=== PATIENT | female | born 1930 | race Caucasian/White ===

== ENCOUNTER 2016-09-24 13:22 | Inpatient (IN) | payer OTHER ==
[~2016-09-24] VITALS: Ht 160 cm; Wt 52.0 kg
[~2016-09-24 13:22] MED LIST: ASPI81TA28 PO; ATRIN INH; CLC100 PO; GFNSR600 PO; LORA-741 PO; LPR25 PO; MULTTAB58 PO; NCDT21 TD; OXGN; PRD20 PO; XPNIN INH
[2016-09-24] MEDS ORDERED: METOPROLOL TARTRATE 1 MG/ML VIAL IV STA ×2 (13:59→15:14)
--- NOTE | 2016-09-24 14:07 | EMERGENCY ROOM VISIT NOTE ---
History Report prepared by Angélica: Anderson John Under the Supervision of: Dr. Ervin Campa M.D. First contact with patient: 13:50 Chief Complaint: RESPIRATORY PROBLEMS Stated Complaint: SWELLING FEET,LEGS,VERY LOW OXYGEN, NO ENERGY History of Present Illness The patient is an 86 year old female who presents to the Emergency Room with complaints of worsening shortness of breath that started a few days ago. Her legs are swollen, but this is chronic. The shortness of breath does not change with position. She says she did not notice that her heart rate was a bit fast. Per the patient's family, the patient uses 5 liters of oxygen at home. The patient did have a cold last week and was on Prednisone. She has no history of atrial fibrillation. The patient is not on any blood thinners. She takes Metoprolol and baby aspirin. She was here a year ago for similar symptoms. Source of History: patient, family Onset: A few days ago Position: other (global - shortness of breath) Timing: worsening Note: Associated symptoms: Cold symptoms last week. Legs swollen, but chronic. Heart rate a bit fast. Review of Systems See HPI for pertinent positives & negatives. A total of 10 systems reviewed and were otherwise negative. Past Medical & Surgical Medical Problems: (1) Atrial fibrillation with RVR (2) CAD (coronary artery disease) (3) Carotid bruit (4) COPD, severe (5) HTN (hypertension) (6) Nonischemic cardiomyopathy (7) Right ventricular dysfunction (8) Tobacco abuse Surgical Problems: (1) H/O cardiac catheterization Family History Family history omitted secondary to age. Social History Smoking Status: Current Every Day Smoker Alcohol Use: none Drug Use: none Marital Status: Housing Status: lives with family Occupation Status: retired Current/Historical Medications Scheduled Aspirin (Aspirin Ec), 81 MG PO DAILY Metoprolol Tartrate (Lopressor), 12.5 MG PO BID Multiple Vitamin (Multivitamin), 1 TAB PO DAILY Oxygen (Oxygen), 5 LITERS NA CONTINOUS Prednisone Tab (Prednisone), 10 MG PO UD Scheduled PRN Ipratropium [place] (Atrovent Hfa), 2 PUFFS INH QID PRN for SOB or cough Levalbuterol Tartrate (Levalbuterol Tartrate Hfa), 2 PUFFS INH Q4H PRN for SOB/ Wheezing Allergies Coded Allergies: Sulfa Antibiotics (Verified Allergy, Intermediate, ?, 09/24/16) Penicillins (Unverified Allergy, Mild, 09/24/16) Physical Exam Vital Signs Date Time Temp Pulse Resp B/P Pulse Ox O2 Delivery O2 Flow Rate FiO2 09/24/16 18:04 137 24 100 Nasal Cannula 4.0 09/24/16 17:58 102/70 09/24/16 17:55 112/82 09/24/16 17:53 115 20 90 09/24/16 17:43 142/80 09/24/16 17:38 99 21 98 09/24/16 17:29 111/53 09/24/16 17:23 119 19 99 09/24/16 17:18 111 17 98 09/24/16 17:14 122/56 09/24/16 17:03 115 17 98 09/24/16 16:58 151/58 09/24/16 16:48 112 16 98 09/24/16 16:44 124/73 09/24/16 16:33 124 22 97 09/24/16 16:29 115/74 09/24/16 16:25 145 127/93 09/24/16 16:24 127/93 09/24/16 16:18 134 19 98 09/24/16 16:13 152/71 09/24/16 16:07 148/91 09/24/16 16:03 126 13 98 09/24/16 15:59 125/78 09/24/16 15:48 124 22 98 09/24/16 15:47 96/82 09/24/16 15:46 112/83 09/24/16 15:44 74/57 09/24/16 15:33 120 26 98 09/24/16 15:32 106/90 09/24/16 15:18 130 15 99 09/24/16 15:13 80/64 09/24/16 15:03 113 15 99 09/24/16 14:58 124/70 09/24/16 14:48 107 21 100 09/24/16 14:43 93/75 09/24/16 14:37 114 19 99 09/24/16 14:31 84/56 09/24/16 14:28 84/56 09/24/16 14:22 112 26 99 09/24/16 14:18 99 Nasal Cannula 4.0 09/24/16 14:16 147 28 114/42 100 Nasal Cannula 4.0 09/24/16 14:15 99 Nasal Cannula 4.0 09/24/16 14:15 114/42 09/24/16 14:13 169 131/73 09/24/16 14:07 148 24 98 09/24/16 13:54 163 09/24/16 13:52 156 19 09/24/16 13:50 131/73 09/24/16 13:29 36.4 95 18 127/72 94 Nasal Cannula 5.0 Physical Exam GENERAL: Patient is chronically unwell appearing and in moderate distress. HEENT: No acute trauma, normocephalic atraumatic, mucous membranes moist, no nasal congestion, no scleral icterus. NECK: No stridor, no adenopathy, no meningismus, trachea is midline. Bilateral JVD elevation. LUNGS: Dyspneic. Decreased breath sounds throughout entire right lobe, decreased on left lower lobe. HEART: Tachycardic rate and irregular rhythm. No murmurs, rubs, gallops appreciated. ABDOMEN: Soft, nontender, bowel sounds positive, no masses appreciated, no peritonitis. BACK: No midline tenderness, no CVA tenderness EXTREMITIES: Normal motion all extremities, no cyanosis. 3+ pitting edema bilateral lower legs. NEUROLOGIC: Alert and oriented, no acute motor or sensory deficits, no focal weakness, cranial nerves grossly intact. SKIN: No rash, no jaundice, no diaphoresis. Medical Decision & Procedures ER Provider Diagnostic Interpretation: X ray results are stated below per my interpretation and the radiologist's interpretation. SINGLE VIEW CHEST CLINICAL HISTORY: Dyspnea. Lower extremity edema. FINDINGS: An AP, portable, upright chest radiograph is compared to study dated 01/12/2015 and correlated with chest CT dated 03/29/2008. The examination is degraded by portable technique and patient rotation. The cardiomediastinal silhouette is unremarkable. There is advanced emphysema and chronic interstitial thickening, with postoperative change from previous right-sided pulmonary resection. These findings are similar to previous. There is pleural fluid the right lung base with right basilar consolidation. There is likely a trace left pleural effusion. The left lung is otherwise clear. The skeletal structures are osteopenic. Degenerative change and scoliosis are noted in the thoracic spine. IMPRESSION: 1. Advanced emphysema and postoperative changes from right-sided pulmonary resection are similar to previous. 2. There is pleural fluid at the right lung base with right basilar opacities. The fluid is likely on a postoperative basis and this may represent atelectasis/scarring. This is also similar to previous. Correlate clinically for evidence of superimposed pneumonia. 3. Suspect a trace left pleural effusion. The left lung is otherwise clear. Electronically signed by: Janes Rae M.D. 09/24/2016 2:57 PM Dictated Date/Time: 09/24/2016 2:54 PM Laboratory Results 09/24/16 14:00 Red Blood Count 3.64, Mean Corpuscular Volume 94.5, Mean Corpuscular Hemoglobin 27.5, Mean Corpuscular Hemoglobin Concent 29.1, Neutrophils (%) (Auto) 58.1, Lymphocytes (%) (Auto) 37.3, Monocytes (%) (Auto) 4.1, Eosinophils (%) (Auto) 0.0, Basophils (%) (Auto) 0.0, Neutrophils # (Auto) 5.48, Lymphocytes # (Auto) 3.52, Monocytes # (Auto) 0.39, Eosinophils # (Auto) 0.00, Basophils # (Auto) 0.00 09/24/16 14:00 Test 09/24/16 14:00 White Blood Count 9.44 K/uL (4.8-10.8) Red Blood Count 3.64 M/uL (4.2-5.4) Hemoglobin 10.0 g/dL (12.0-16.0) Hematocrit 34.4 % (37-47) Mean Corpuscular Volume 94.5 fL (80-100) Mean Corpuscular Hemoglobin 27.5 pg (25-34) Mean Corpuscular Hemoglobin Concent 29.1 g/dl (32-36) Platelet Count 108 K/uL (130-400) Neutrophils (%) (Auto) 58.1 % Lymphocytes (%) (Auto) 37.3 % Monocytes (%) (Auto) 4.1 % Eosinophils (%) (Auto) 0.0 % Basophils (%) (Auto) 0.0 % Neutrophils # (Auto) 5.48 K/uL (1.4-6.5) Lymphocytes # (Auto) 3.52 K/uL (1.2-3.4) Monocytes # (Auto) 0.39 K/uL (0.11-0.59) Eosinophils # (Auto) 0.00 K/uL (0-0.5) Basophils # (Auto) 0.00 K/uL (0-0.2) RDW Standard Deviation 55.9 fL (36.4-46.3) RDW Coefficient of Variation 16.1 % (11.5-14.5) Immature Granulocyte % (Auto) 0.5 % Immature Granulocyte # (Auto) 0.05 K/uL (0.00-0.02) Platelet Estimate DECREASED Poikilocytosis PRESENT Ovalocytes 1+ Prothrombin Time 10.9 SECONDS (9.0-12.0) Prothromb Time International Ratio 1.0 (0.9-1.1) Activated Partial Thromboplast Time 23.9 SECONDS (21.0-31.0) Partial Thromboplastin Ratio 0.9 Anion Gap 3.0 mmol/L (3-11) Est Creatinine Clear Calc Drug Dose 41.1 ml/min Estimated GFR () 93.0 Estimated GFR (Non- 80.2 BUN/Creatinine Ratio 36.4 (10-20) Calcium Level 8.3 mg/dl (8.5-10.1) Magnesium Level 2.1 mg/dl (1.8-2.4) Total Creatine Kinase 44 U/L (26-192) Creatine Kinase MB 4.2 ng/ml (0.5-3.6) Creatine Kinase MB Ratio 9.5 (0-3.0) Troponin I 0.028 ng/ml (0-0.045) Pro-B-Type Natriuretic Peptide 33656 pg/ml (0-1800) Thyroid Stimulating Hormone (TSH) 1.140 uIu/ml (0.300-4.500) Laboratory results as reviewed by me. Medications Administered Medications (Trade) Dose Ordered Sig/Jesús Route Start Time Stop Time Status Last Admin Dose Admin Metoprolol Tartrate (Lopressor Iv) 5 mg NOW STAT IV 09/24/16 13:59 09/24/16 14:01 DC 09/24/16 14:13 5 MG Metoprolol Tartrate (Lopressor Iv) 5 mg NOW STAT IV 09/24/16 15:14 09/24/16 15:15 DC 09/24/16 16:25 5 MG Furosemide (Lasix Inj) 40 mg STK-MED ONCE .ROUTE 09/24/16 17:32 09/24/16 17:34 DC 09/24/16 17:36 20 MG Heparin Sodium (Porcine) (Heparin Sq 5000 Unit/0.5ml) 5,000 unit STK-MED ONCE .ROUTE 09/24/16 17:51 09/24/16 17:53 DC 09/24/16 18:01 3,000 UNIT ECG Indication: SOB/dyspnea Rate (beats per minute): 148 Rhythm: atrial fibrillation (with RVR) Findings: other (nonspecific ST changes) Comparison ECG Date: acute change from previous normal sinus rhythm ED Course 1354: The patient was evaluated in room C12B. A complete history and physical exam was performed. 1359: Ordered Lopressor IV 5 mg IV. 1445: I reevaluated the patient and she says she feels alright. She still feels a bit short of breath. Her heart rate is in the 130s now. The patient verbally expressed understanding and agreement of the treatment plan. The patient will be evaluated for further treatment. 1504: I discussed the patient with Rima Steven - she will evaluate the patient for further treatment. 1515: I reevaluated the patient and her heart rate is in the 130s and her blood pressure is in the 120s, so we are giving her more Lopressor. Medical Decision Differential: Infectious, Reactive Airway Disease, Pneumonia, Pneumothorax, COPD , CHF, ACS, Pulmonary Embolism, MSK, GI, Dissection, amongst other etiologies entertained. 86 yr old female arrives with complaint of shortness of breath. By exam she is acute CHF though is now in new onset Afib with RVR. Given Lopressor which improved HR then given another dose with improvement when started getting fast again. Mild hypotension thus wish to avoid over medication as she is stable and in minimal distress. No clear pulm edema on CXR though clearly is overloaded. Defer Lasix dosing to hospitalist as may want to see how fluid status modifies after keeping rate under control. Unclear if recent steroids have caused Afib resulting in CHF, or if CHF due to not taking meds or other issues. Held off on IV fluids for hypotension as it improved without and with her fluid overload seems reasonable to hold off from given more fluid than necessary. No evidence of ACS, PE, dissection at this time. Consults Time Called: [id number] Consulting Physician: Rima Steven Returned Call: [phone] I discussed the patient with Rima Steven - she will evaluate the patient for further treatment. Impression Primary Impression: Atrial fibrillation with RVR Additional Impressions: CHF (congestive heart failure) Generalized weakness Scribe Attestation The scribe's documentation has been prepared under my direction and personally reviewed by me in its entirety. I confirm that the note above accurately reflects all work, treatment, procedures, and medical decision making performed by me. Departure Information Dispostion Being Evaluated By Hospitalist Prescriptions Ipratropium [place] (Atrovent Hfa) 200 Puffs/3400 Mcg Aers 2 PUFFS INH QID Y for SOB or cough for 30 Days Prov: Earline Winters PA-C 09/24/16 Referrals Eron Crespo M.D. (PCP) Patient Instructions My [facility] Problem Qualifiers Additional Impressions: CHF (congestive heart failure) Congestive heart failure type: systolic Congestive heart failure chronicity: acute Qualified Codes: I50.21 - Acute systolic (congestive) heart failure
[2016-09-24 14:16] LABS: MEAN CORPUSCULAR HGB CONC 29.1 g/dl (32-36)
[2016-09-24 14:21] LABS: PARTIAL THROMBOPLASTIN RATIO 0.9; PROTHROMBIN TIME (PATIENT) 10.9 SECONDS (9.0-12.0)
[2016-09-24 14:24] LABS: HEMATOCRIT 34.4 % (37-47); MEAN CELL VOLUME 94.5 fL (80-100); MEAN CORPUSCULAR HEMOGLOBIN 27.5 pg (25-34); RED BLOOD COUNT 3.64 M/uL (4.2-5.4); WHITE BLOOD COUNT 9.44 K/uL (4.8-10.8)
[2016-09-24 14:33] LABS: BUN/CREATININE RATIO 36.4 (10-20); CALCIUM 8.3 mg/dl (8.5-10.1); CREATININE 0.64 mg/dl (0.60-1.20); MAGNESIUM 2.1 mg/dl (1.8-2.4); POTASSIUM 4.5 mmol/L (3.5-5.1)
[2016-09-24 14:38] LABS: CKMB/CK RATIO 9.5 (0-3.0); COMPLETE YES; IG% 0.5 %; LYMPH % 37.3 %; LYMPH ABS # 3.52 K/uL (1.2-3.4); MONO % 4.1 %; NEUT % 58.1 %; OVALOCYTES 1+; PLATELET COUNT 108 K/uL (130-400); PLT ESTIMATE DECREASED; POIKILOCYTOSIS PRESENT
[2016-09-24] MEDS ORDERED: PRED10TA PO (14:45)
[2016-09-24] MEDS ORDERED: CLOT10TR MT (14:45)
[2016-09-24] MEDS ORDERED: FURO20TA PO (14:45)
[2016-09-24] MEDS ORDERED: LEVA45AE INH (14:45)
--- NOTE | 2016-09-24 14:58 | DIAGNOSTIC IMAGING REPORT ---
SINGLE VIEW CHEST CLINICAL HISTORY: Dyspnea. Lower extremity edema. FINDINGS: An AP, portable, upright chest radiograph is compared to study dated 01/12/2015 and correlated with chest CT dated 03/29/2008. The examination is degraded by portable technique and patient rotation. The cardiomediastinal silhouette is unremarkable. There is advanced emphysema and chronic interstitial thickening, with postoperative change from previous right-sided pulmonary resection. These findings are similar to previous. There is pleural fluid the right lung base with right basilar consolidation. There is likely a trace left pleural effusion. The left lung is otherwise clear. The skeletal structures are osteopenic. Degenerative change and scoliosis are noted in the thoracic spine. IMPRESSION: 1. Advanced emphysema and postoperative changes from right-sided pulmonary resection are similar to previous. 2. There is pleural fluid at the right lung base with right basilar opacities. The fluid is likely on a postoperative basis and this may represent atelectasis/scarring. This is also similar to previous. Correlate clinically for evidence of superimposed pneumonia. 3. Suspect a trace left pleural effusion. The left lung is otherwise clear. Electronically signed by: Janes Rae M.D. 09/24/2016 2:57 PM Dictated Date/Time: 09/24/2016 2:54 PM
[2016-09-24] MEDS ORDERED: ATRIN INH (16:09)
[2016-09-24] MEDS ORDERED: IPRATROPIUM BROMIDE HFA INHALER INH PRN (16:15)
[2016-09-24] MEDS ORDERED: ACETAMINOPHEN 325 MG TAB PO PRN (16:15)
[2016-09-24] MEDS ORDERED: ONDANSETRON INJ 2 MG/ML 2 ML VIAL IV PRN (16:15)
[2016-09-24] MEDS ORDERED: LEValbuterol HFA 15GM INHALER INH PRN (16:15)
[2016-09-24] MEDS ORDERED: FUROSEMIDE INJ 20 MG in SYRINGE 0 ML IV ONE (16:30)
--- NOTE | 2016-09-24 17:03 | History and Physical ---
History & Physical Date & Time of Service: Sep 24, 2016 at 16:25 Chief Complaint: Swelling Feet,Legs,Very Low Oxygen, No Energy Primary Care Physician: Eron Crespo M.D. 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 Pt follows with Dr. Crespo for primary care. She has seen [facility] cardiology in the past (last visit 2011). Son at bedside states SOB was worse for a few weeks with increased "gurgling" and then markedly worsened yesterday and today. SOB is worse with ambulation but occurs occasionally at rest. She has cough with clear sputum which is typical for her. She has associated increase in BLLE edema from baseline. She does not track her weight. When she became ill patient' s PCP's office was called and she was given a course of Azithromycin finished 5 days ago and a prednisone taper finished approx 1 week ago. She restarted on prednisone yesterday at which time she took 50 mg. She was having some left sided flank pain in past few days which resolved. Pt denies fever, chills, dizziness, vision change, numbness, tingling, rhinorrhea, orthopnea, chest pain , palpitations, abdominal pain, N/V/D, dysuria, frequency, GI bleeding or other abnormal bleeding. She ambulates about 30 feet around the home. No recent falls. Denies history of DM or TIA/ CVA. Past Medical/Surgical History Medical Problems: (1) CAD (coronary artery disease) Status: Chronic (2) Carotid bruit Status: Chronic (3) COPD, severe Status: Chronic (4) HTN (hypertension) Status: Chronic (5) Nonischemic cardiomyopathy Permanent Comment: prior LV EF 15-30%; echo 01/2015 LV EF 60-65%, mod reduced RV function, grade 1 diastolic dysfunction Status: Chronic (6) Right ventricular dysfunction Permanent Comment: moderately reduced RV systolic function on echo 01/11/2015 Status: Chronic (7) Tobacco abuse Status: Chronic Surgical Problems: (1) H/O cardiac catheterization Permanent Comment: 2008- mild diffuse disease, 50% RCA lesion Status: Chronic Family History FH: CAD (coronary artery disease) BROTHER DAUGHTER Social History Smoking Status: Current Every Day Smoker (1-1.5 ppd ) Drug Use: none Marital Status: Occupational Status: retired Multi-Drug Resistant Organisms History of MDRO: No Allergies Coded Allergies: Sulfa Antibiotics (Verified Allergy, Intermediate, ?, 09/24/16) Penicillins (Unverified Allergy, Mild, 09/24/16) Home Medications Scheduled Aspirin (Aspirin Ec), 81 MG PO DAILY Metoprolol Tartrate (Lopressor), 12.5 MG PO BID Multiple Vitamin (Multivitamin), 1 TAB PO DAILY Oxygen (Oxygen), 5 LITERS NA CONTINOUS Prednisone Tab (Prednisone), 10 MG PO UD Scheduled PRN Ipratropium [place] (Atrovent Hfa), 2 PUFFS INH QID PRN for SOB or cough Levalbuterol Tartrate (Levalbuterol Tartrate Hfa), 2 PUFFS INH Q4H PRN for SOB/ Wheezing Review of Systems Constitutional: No chills, No fever Eyes: No worsening of vision ENT: + trouble swallowing (occasional to solid or liquid. no recent aspiration episodes. does well on soft diet. ), No nasal symptoms Respiratory: No cough, No shortness of breath Cardiovascular: + edema, No chest pain, No palpitations Abdomen: No GI bleeding, No diarrhea, No nausea, No pain, No vomiting Musculoskeletal: + problem reported (vague left flank pain in past few days- resolved. no abdominal pain), No calf pain Genitourinary - Female: No dysuria, No urinary frequency Neurologic: No numbness/tingling, No problem reported (no dizziness), No weakness Psychiatric: No depression symptoms Hematologic / Lymphatic: + problem reported (bruises easily. denies epistaxis or gum bleeding. ) Physical Exam Vital Signs Date Time Temp Pulse Resp B/P Pulse Ox O2 Delivery O2 Flow Rate FiO2 09/24/16 14:43 93/75 09/24/16 14:37 114 19 99 09/24/16 14:31 84/56 09/24/16 14:28 84/56 09/24/16 14:22 112 26 99 09/24/16 14:18 99 Nasal Cannula 4.0 09/24/16 14:16 147 28 114/42 100 Nasal Cannula 4.0 09/24/16 14:15 99 Nasal Cannula 4.0 09/24/16 14:15 114/42 09/24/16 14:13 169 131/73 09/24/16 14:07 148 24 98 09/24/16 13:54 163 09/24/16 13:52 156 19 09/24/16 13:50 131/73 09/24/16 13:29 36.4 95 18 127/72 94 Nasal Cannula 5.0 General Appearance: + thin, + pertinent finding (frail elderly female, son at bedside) Head: normocephalic, atraumatic Eyes: normal inspection, PERRL, EOMI ENT: hearing grossly normal, pharynx normal Neck: supple, trachea midline, + JVD Respiratory/Chest: + decreased breath sounds, + accessory muscle use (mild- occurred after repositioning), + pertinent finding (no wheezes, crackles, or rhonchi. saturating well on 5L at rest, sat dropped briefly to 80s with repositioning. ) Cardiovascular: no murmur, + tachycardia (rate 130s), + irregularly irregular, + pertinent finding (radial pulses 2+. unable to appreciate DP pulses) Abdomen/GI: normal bowel sounds, non tender, soft Back: no CVA tenderness Extremities/Musculoskelatal: normal capillary refill, + pertinent finding ( BLLE pretibial and pedal edema 3+) Neurologic/Psych: alert, normal mood/affect, oriented x 3, + pertinent finding (grossly nonfocal. moves all extremities strength 5/5) Skin: normal color, warm/dry Diagnostics Laboratory Results Results Past 24 Hours Test 09/24/16 14:00 09/24/16 16:03 Range/Units White Blood Count 9.44 4.8-10.8 K/uL Red Blood Count 3.64 4.2-5.4 M/uL Hemoglobin 10.0 12.0-16.0 g/dL Hematocrit 34.4 37-47 % Mean Corpuscular Volume 94.5 80-100 fL Mean Corpuscular Hemoglobin 27.5 25-34 pg Mean Corpuscular Hemoglobin Concent 29.1 32-36 g/dl Platelet Count 108 130-400 K/uL Neutrophils (%) (Auto) 58.1 % Lymphocytes (%) (Auto) 37.3 % Monocytes (%) (Auto) 4.1 % Eosinophils (%) (Auto) 0.0 % Basophils (%) (Auto) 0.0 % Neutrophils # (Auto) 5.48 1.4-6.5 K/uL Lymphocytes # (Auto) 3.52 1.2-3.4 K/uL Monocytes # (Auto) 0.39 0.11-0.59 K/uL Eosinophils # (Auto) 0.00 0-0.5 K/uL Basophils # (Auto) 0.00 0-0.2 K/uL RDW Standard Deviation 55.9 36.4-46.3 fL RDW Coefficient of Variation 16.1 11.5-14.5 % Immature Granulocyte % (Auto) 0.5 % Immature Granulocyte # (Auto) 0.05 0.00-0.02 K/uL Platelet Estimate DECREASED Poikilocytosis PRESENT Ovalocytes 1+ Prothrombin Time 10.9 9.0-12.0 SECONDS Prothromb Time International Ratio 1.0 0.9-1.1 Activated Partial Thromboplast Time 23.9 21.0-31.0 SECONDS Partial Thromboplastin Ratio 0.9 Sodium Level 137 136-145 mmol/L Potassium Level 4.5 3.5-5.1 mmol/L Chloride Level 94 98-107 mmol/L Carbon Dioxide Level 40 21-32 mmol/L Anion Gap 3.0 3-11 mmol/L Blood Urea Nitrogen 23 7-18 mg/dl Creatinine 0.64 0.60-1.20 mg/dl Est Creatinine Clear Calc Drug Dose 41.1 ml/min Estimated GFR () 93.0 Estimated GFR (Non- 80.2 BUN/Creatinine Ratio 36.4 10-20 Random Glucose 109 70-99 mg/dl Calcium Level 8.3 8.5-10.1 mg/dl Magnesium Level 2.1 1.8-2.4 mg/dl Total Creatine Kinase 44 26-192 U/L Creatine Kinase MB 4.2 0.5-3.6 ng/ml Creatine Kinase MB Ratio 9.5 0-3.0 Troponin I 0.028 0-0.045 ng/ml Pro-B-Type Natriuretic Peptide 29061 0-1800 pg/ml Diagnostic Radiology SINGLE VIEW CHEST CLINICAL HISTORY: Dyspnea. Lower extremity edema. FINDINGS: An AP, portable, upright chest radiograph is compared to study dated 01/12/2015 and correlated with chest CT dated 03/29/2008. The examination is degraded by portable technique and patient rotation. The cardiomediastinal silhouette is unremarkable. There is advanced emphysema and chronic interstitial thickening, with postoperative change from previous right-sided pulmonary resection. These findings are similar to previous. There is pleural fluid the right lung base with right basilar consolidation. There is likely a trace left pleural effusion. The left lung is otherwise clear. The skeletal structures are osteopenic. Degenerative change and scoliosis are noted in the thoracic spine. IMPRESSION: 1. Advanced emphysema and postoperative changes from right-sided pulmonary resection are similar to previous. 2. There is pleural fluid at the right lung base with right basilar opacities. The fluid is likely on a postoperative basis and this may represent atelectasis/scarring. This is also similar to previous. Correlate clinically for evidence of superimposed pneumonia. 3. Suspect a trace left pleural effusion. The left lung is otherwise clear. EKG atrial fibrillation with RVR, rate 148, no ST or T wave abnormality Impression Assessment and Plan NEW ONSET ATRIAL FIBRILLATION WITH RVR Unclear duration Rate initially up to 160s, improved to 130s-140s with 1 dose IV Lopressor 5 mg BP has fluctuated to 80s, now normalized Will give another dose IV Lopressor 5 mg Increase home PO Lopressor dose to 25 mg BID K+ and mag WNL; troponin negative (0.028) Check TSH Trend serial cardiac enzymes Check echo CHADS2 score 3 for heart failure, HTN, age Start IV heparin low dose with bolus Consult cardiology; Dr. Vaca is aware NONISCHEMIC CARDIOMYOPATHY Currently in acutely decompensated congestive heart failure Presents with worsening SOB and increasing LE edema ProBNP is 15,000; CXR with left and trace right pleural effusions Will give Lasix 20 mg IV now Check echo Monitor daily weight and intake/ output CHRONIC RESPIRATORY FAILURE/ SEVERE COPD Does not appear to be in acute exacerbation Saturating well on her chronic 5 liters NC CXR- R lung base pleural effusion with right base opacities similar to previous x-ray Afebrile; no leukocytosis; does not appear to have infection May discontinue the prednisone taper (has taken 1 dose yesterday of 50 mg) Continue home inhalers and supplemental O2 CAD Denies chest pain Prior cath 2007 showed diffuse mild disease and 50% RCA lesion Continue aspirin and B; not on statin currently TOBACCO ABUSE Continues to smoke 1-1.5 ppd Counselled about smoking cessation DVT PROPHYLAXIS On IV heparin CODE STATUS DNR per my discussion with the patient and her family. She has a living will. DISPOSITIONS Lives with son Follows with Dr. Crespo for primary care Patient seen in collaboration with Dr. Alexander. Please see his addendum. VTE Prophylaxis VTE Risk Assessment Done? Y/N: Yes Risk Level: High Given or contraindicated: Other Anticoagulation (IV heparin) Note ATTENDING ADDENDUM Record reviewed. Patient interviewed and examined. Care coordinated with Earline Winters PA-C. Please refer to her documentation for patient's history. Briefly, 86 YO female with history of CAD, CHF, severe O2 dependent COPD, and other problems. Presented to ED with increasing weakness, worsening dyspnea, worsening dependent edema. No fever. No change in chronic cough. Found to be in AF with RVR. EXAM: General- elderly female, appears to be chronically ill, tachypneic with minimal exertion VS- as noted Neck- + JVD Lungs- few bibasilar rales, diffuse mild wheezing Heart- distant heart sounds, irregular, tachycardic, no murmurs or gallops appreciated Abdomen- + BS, soft, nontender Extremities- 2+ pretibial edema, no calf tenderness Neuro- alert, oriented DATA: Troponin 0.028. Pro-BNP 15,618. Other lab studies as noted. CXR- severe COPD, chronic changes right base noted on film 2014 + right pleural effusion. EKG performed at 13:54 reviewed and demonstrated AF at 150 / minute, NSSTTWA's. ASSESSMENT AND PLAN: Atrial fibrillation with RVR. Onset uncertain. K, Mg, TSH OK. Worsening CHF, probably due to AF. Severe underlying O2 dependent COPD- appears to be at baseline, no apparent respiratory tract infection. Initial management of AF- metoprolol for rate control + IV heparin low dose protocol. IV furosemide x 1. No apparent indication for steroids or antibiotics at this time (recent steroid taper and new taper just started, but not on chronic prednisone) Consult Cardiology. DNR. Please refer to PENNY Winters's documentation for discussion of other issues. Rashard Alexander MD .
[2016-09-24] MEDS ORDERED: FUROSEMIDE 40 MG/4 ML VIAL ONE (17:32)
[2016-09-24] MEDS ORDERED: HEPARIN SOD 5000 UNIT/0.5 ML CARP ONE (17:51)
[2016-09-24 18:25] VITALS: BP 142/91; PULSE 110; O2SAT 96; O2SAT 99; Ht 160 cm; Wt 52.0 kg
[2016-09-24] MEDS ORDERED: HEPARIN 25,000 UNIT/500ML D5W 500 ML IV PRN (18:30)
[2016-09-24] MEDS ORDERED: DIGOXIN IV 250 MCG in SYRINGE 9 ML IV ONE (18:45)
[2016-09-24] MEDS ORDERED: METOPROLOL TARTRATE 25 MG TAB PO ONE (19:00)
[2016-09-24 19:44] VITALS: BP 144/75; PULSE 118; TEMP 36.4; O2SAT 95
[2016-09-24] MEDS ORDERED: METOPROLOL TARTRATE 1 MG/ML VIAL IV. PRN (19:45)
[2016-09-24 19:54] VITALS: BP 138/88; PULSE 124; O2SAT 94
[2016-09-24 20:00] VITALS: O2SAT 94
[2016-09-24] MEDS ORDERED: HEPARIN SOD 5000 UNIT/0.5 ML CARP SQ SCH (21:00)
[2016-09-24] MEDS ORDERED: METOPROLOL TARTRATE 25 MG TAB PO SCH (21:00)
[2016-09-24 21:21] LABS: CKMB/CK RATIO 9.1 (0-3.0)
[2016-09-24] MEDS: METOPROLOL TARTRATE 25 MG TAB PO SCH (21:30)
[2016-09-24 21:31] VITALS: BP 127/70; PULSE 106; O2SAT 94
[2016-09-24 23:59] VITALS: O2SAT 97
[2016-09-24] MEDS ORDERED: DIGOXIN IV 125 MCG in SYRINGE 9.5 ML IV ONE (23:59)
[2016-09-25] VITALS (13 sets, daily range): BP systolic 91–146; BP diastolic 55–80; PULSE 73–124; TEMP 36.3–36.9; O2SAT 82–99
[2016-09-25] MEDS ORDERED: METOPROLOL TARTRATE 25 MG TAB PO SCH
[2016-09-25] MEDS ORDERED: DIGOXIN IV 250 MCG in SYRINGE 9 ML IV ONE ×2 (01:00→15:45)
[2016-09-25 01:54] LABS: PARTIAL THROMBOPLASTIN RATIO 1.1
[2016-09-25 02:01] LABS: CKMB/CK RATIO 10.5 (0-3.0)
[2016-09-25 03:30] LABS: ARTERIAL BLD GAS O2 SATURATION 97.3 % (90-95); ARTERIAL BLOOD GAS BASE EXCESS 12.8 mEq/L (-9-1.8); ARTERIAL BLOOD GAS HCO3 43 mmol/L (19-24); ARTERIAL BLOOD GAS PO2 123 mm/Hg (80-95); ARTERIAL BLOOD GAS pH 7.24 (7.35-7.45)
[2016-09-25 03:31] LABS: ALLEN TEST POS (POS)
[2016-09-25 03:32] LABS: O2 ADMINISTRATION 3 L O2
[2016-09-25 03:50] LABS: BUN/CREATININE RATIO 43.6 (10-20); CALCIUM 7.8 mg/dl (8.5-10.1); CREATININE 0.61 mg/dl (0.60-1.20)
[2016-09-25 03:54] LABS: HEMATOCRIT 32.2 % (37-47); MEAN CELL VOLUME 93.9 fL (80-100); MEAN CORPUSCULAR HEMOGLOBIN 27.1 pg (25-34); MEAN CORPUSCULAR HGB CONC 28.9 g/dl (32-36); PLATELET COUNT 93 K/uL (130-400); PLT ESTIMATE DECREASED; RED BLOOD COUNT 3.43 M/uL (4.2-5.4); WHITE BLOOD COUNT 7.68 K/uL (4.8-10.8)
[2016-09-25] MEDS: METOPROLOL TARTRATE 1 MG/ML VIAL IV PRN ×3 (06:36→15:10)
[2016-09-25] MEDS: MULTIVITAMIN TAB PO SCH (08:01)
[2016-09-25] MEDS: ASPIRIN 81 MG ECTAB PO SCH (08:01)
[2016-09-25] MEDS: METOPROLOL TARTRATE 25 MG TAB PO SCH ×2 (08:01→20:55)
--- NOTE | 2016-09-25 08:10 | DIAGNOSTIC IMAGING REPORT ---
CT OF THE HEAD WITHOUT CONTRAST CLINICAL HISTORY: Altered mental status. Anticoagulation. Evaluate for bleed. COMPARISON STUDY: No previous studies for comparison. CT DOSE: 1520.31 mGy.cm TECHNIQUE: Helical axial images of the head were obtained without IV contrast. Automated exposure control was utilized for the study. FINDINGS: This exam is mildly compromised by motion artifact. No acute intracranial hemorrhage, midline shift or mass effect is present. Ventricular system is normal. The basilar cisterns are patent. There are no extra-axial collections. Moderate white matter hypodensity suggests small vessel disease. There are no findings to suggest acute dural sinus thrombosis or acute territorial infarct. There is material within the left sphenoid sinus. IMPRESSION: 1. No acute intracranial findings. 2. Study mildly compromised by motion artifact. 3. Moderate small vessel disease. Electronically signed by: Suleman Viera M.D. 09/25/2016 8:09 AM Dictated Date/Time: 09/25/2016 8:07 AM
[2016-09-25 08:40] LABS: ARTERIAL BLOOD GAS HCO3 42 mmol/L (19-24); ARTERIAL BLOOD GAS PO2 56 mm/Hg (80-95); ARTERIAL BLOOD GAS pH 7.28 (7.35-7.45)
[2016-09-25 08:41] LABS: ALLEN TEST POS (POS); O2 ADMINISTRATION 2L
--- NOTE | 2016-09-25 12:20 | CARDIOLOGY CONSULTATION ---
DATE OF CONSULTATION: 09/25/2016 DATE OF CONSULTATION: 09/25/2016. HISTORY OF PRESENT ILLNESS: Mandy Jules is an 86-year-old female seen in cardiology consultation per the request of Eraline Winters PA-C and Dr. Alexander for the evaluation of atrial fibrillation with rapid ventricular rate. The patient has a past medical history of severe underlying COPD for which she is on chronic supplemental oxygen 5 liters per minute nasal cannula. She has previously followed with Dr. Israel of our practice for history of nonischemic cardiomyopathy and nonobstructive CAD. Her echocardiogram dating back to 2007 had revealed severe LV systolic dysfunction. Cardiac catheterization performed by Dr. Zaki Mehta at that time revealed mild to moderate nonobstructive CAD and with medical therapy and time her ejection fraction normalized and was graded as being 60-65% on echocardiograms in 2011 and again in 2014. She had last been seen by Dr. Israel as a hospital consultation in January 2015. The patient presented to the Emergency Room yesterday due to complaint of swelling in the feet, decreased energy and low oxygen. She had been found to have atrial fibrillation with rapid ventricular rate. Her initial rate was up to 160 beats per minute and then improved to the 130-140 beat per minute range after IV metoprolol, however her blood pressure also subsequently decreased and therefore the Lopressor had been discontinued. She received a dose of IV digoxin which transiently helped her heart rates. Currently, her heart rate is fluctuating anywhere between 100 and 140 beats per minute on the telemetry floor. During my evaluation of the patient, she was comfortable and denied any respiratory complaint. She was, however, confused. She was not tachypneic. PAST MEDICAL HISTORY: 1. Moderate nonobstructive coronary artery disease by cardiac catheterization in 2007. 2. History of abdominal aortic aneurysm 3.9 cm by last measurement. 3. Nonischemic cardiomyopathy with severe LV systolic dysfunction 2007, negative catheterization at that time, subsequent resolution and improvement in her LVEF upon followup with normal LVEF at last measurement 2014. 4. History of right ventricular dysfunction on echocardiogram 2014, likely related to her underlying lung disease. 5. History of severe underlying oxygen dependent COPD. PAST SURGICAL HISTORY: Cardiac catheterization as outlined above. FAMILY HISTORY: Coronary artery disease in brother and daughter. SOCIAL HISTORY: The patient continues to smoke. ALLERGIES: SULFA DRUGS AND PENICILLIN. HOME MEDICATIONS: 1. Aspirin 81 mg daily. 2. Metoprolol tartrate 12.5 mg b.i.d. 3. Multivitamin. 4. Oxygen. 5. Prednisone. On an as needed basis, she takes Atrovent inhaler and levalbuterol inhaler. COMPREHENSIVE REVIEW OF SYSTEMS: Unobtainable due to the patient's lethargy. PHYSICAL EXAMINATION: VITAL SIGNS: Temperature 36.6, heart rate 110, blood pressure 112/63, pulse oximetry 98% on 3 liters nasal cannula. GENERAL APPEARANCE: Ill in appearance, cachectic, frail, lethargic. NECK: No bruits. CARDIOVASCULAR: Irregular rhythm. CHEST: No murmurs. LUNGS: Mildly decreased breath sounds at bases. ABDOMEN: Soft, nontender. EXTREMITIES: No edema. DIAGNOSTIC DATA: EKG tracing performed 09/24/2016 at 1359 revealed atrial fibrillation with rapid ventricular response at 148 beats per minute with no significant ST changes. Compared to the prior tracing dated 01/25/2015, atrial fibrillation has replaced sinus rhythm and the ventricular rate has increased by 74 beats per minute. WBC 7.68, hemoglobin 9.3, platelet count 93,000. Sodium 140, potassium 5 mmol/L, CO2 42, BUN 27, creatinine 0.1. Troponin I 0.028, 0.028, 0.33 x3 measurements. Most recent arterial blood gas revealed pH of 7.28, pCO2 at 93, pCO2 of 56, bicarbonate 42. IMAGING: CT of the brain, no acute intracranial findings, moderate small vessel disease. CHEST X-RAY: 1. Advanced emphysema with postoperative changes from right-sided pulmonary resection. 2. There is pleural fluid at the right lung base with right basilar opacities, possibly due to a superimposed pneumonia per the radiology report. 3. Possible left pleural effusion. FINAL IMPRESSION: An 86-year-old female. Atrial fibrillation with rapid ventricular rate, likely due to acute exacerbation of chronic obstructive pulmonary disease with acute on chronic CO2 retention. DISCUSSION AND RECOMMENDATIONS: The patient's blood pressure has been relatively low. Multiple medications have been attempted at this point and she has had some variability in her atrial fibrillation rate. She is not in acute distress. I think that further support from a respiratory standpoint is necessary. I am not going to add any additional cardiac medications beyond the metoprolol tartrate 25 mg b.i.d. at this point. She did receive IV digoxin overnight last night as well as a dose of furosemide. In terms of stroke prophylaxis continue aspirin. I agree that it is necessary to discontinue heparin due to her thrombocytopenia. Will follow the patient with you. I am hopeful that her atrial fibrillation will improve with further supportive care. RADHA
--- NOTE | 2016-09-25 16:30 | ECHOCARDIOGRAM REPORT ---
*NOTICE TO RECEIVING REPUBLICAN AGENCY This information is strictly Confidential and protected under [place] law. [place] law prohibits you from making any further disclosure of this information unless further disclosure is expressly permitted by the written consent of the person to whom it pertains or is authorized by law. A general authorization for the release of medical or other information is not sufficient for this purpose. Hospital accepts no responsibility if the information is made available to any other person, INCLUDING THE PATIENT. Interpretation Summary * Name: PEDRO PABLO WINSLOW Study Date: 09/25/2016 03:24 PM BP: 124/55 mmHg * Patient Location: [facility] HR: 99 * : 1930 (M/d/yyyy) Gender: Female Height: 63 in * Age: 86 yrs Ethnicity: CA Weight: 92 lb * Ordering Physician: Earline Winters * Referring Physician: Eron Crespo * Performed By: Lan Bull RCS * * Reason For Study: A-FIB * BSA: 1.4 m2 * -- Conclusions -- * Atrial fibrillation with rapid ventricular rate was present at the time of the echocardiogram. * The left ventricular ejection fraction is grossly normal. * The right ventricle is moderately dilated. * The right ventricular systolic function is moderately reduced. * Severe biatrial enlargement is present. * There is moderate tricuspid regurgitation. * There is mild mitral regurgitation. * Moderate to severe pulmonary hypertension is present. * The PA systolic pressure is calculated to be 63 mm Hg. Procedure Details * A complete two-dimensional transthoracic echocardiogram was performed (2D, M-mode, Doppler and color flow Doppler). * There were technical limitations due to patient'spoor positioning Left Ventricle * The left ventricle is normal in size. * There is normal left ventricular wall thickness. * The left ventricular ejection fraction is grossly normal. Right Ventricle * The right ventricle is moderately dilated. The right ventricular systolic function is moderately reduced. Atria * The left atrium is moderately dilated. * The right atrium is severely dilated. * There is no evidence of atrial septal defect, but resolution does not allow assessment for a patent foramen ovale. Mitral Valve * The mitral valve is normal. * There is no mitral valve stenosis. * There is mild mitral regurgitation. Tricuspid Valve * The tricuspid valve is normal. * There is no tricuspid stenosis. * There is moderate tricuspid regurgitation. Aortic Valve * The aortic valve is trileaflet. * Aortic stenosis is absent. * There is no significant aortic regurgitation. Pulmonic Valve * The pulmonary valve is not well seen, but the Doppler examination is normal without significant regurgitation or stenosis. Great Vessels * The aortic root and proximal ascending aorta are normal sized. Pericardium/Pleural * There is no pericardial effusion. Great Vessels * Dilated inferior vena cava with reduced collapsability with sniff indicates an elevated right atrial pressure of 15 mmHg MMode 2D Measurements and Calculations IVSd 0.95 cm IVSs 1.1 cm LVIDd 4.1 cm LVIDs 2.9 cm LVPWd 1.1 cm LVPWs 1.5 cm IVS/LVPW 0.87 FS 27.9 % EDV(Teich) 72.9 ml ESV(Teich) 33.1 ml EF(Teich) 54.6 % EDV(cubed) 67.4 ml ESV(cubed) 25.2 ml EF(cubed) 62.6 % % IVS thick 19.2 % % LVPW thick 36.7 % LV mass(C)d 135.5 grams LV mass(C)dI 97.5 grams/m\S\2 LV mass(C)s 123.6 grams LV mass(C)sI 88.9 grams/m\S\2 CO(Teich) 4.9 l/min CI(Teich) 3.6 l/min/m\S\2 SV(Teich) 39.8 ml SI(Teich) 28.6 ml/m\S\2 CO(cubed) 5.2 l/min CI(cubed) 3.8 l/min/m\S\2 SV(cubed) 42.2 ml SI(cubed) 30.3 ml/m\S\2 Ao root diam 3.1 cm Ao root area 7.4 cm\S\2 ACS 1.4 cm LA dimension 3.1 cm LA/Ao 1.0 LVAd ap4 23.5 cm\S\2 LVLd ap4 7.2 cm EDV(MOD-sp4) 63.0 ml LVAs ap4 15.9 cm\S\2 LVLs ap4 6.9 cm ESV(MOD-sp4) 31.0 ml EF(MOD-sp4) 50.8 % LVAd ap2 25.6 cm\S\2 LVLd ap2 7.5 cm EDV(MOD-sp2) 73.0 ml LVAs ap2 17.2 cm\S\2 LVLs ap2 6.8 cm ESV(MOD-sp2) 38.0 ml EF(MOD-sp2) 47.9 % CO(MOD-sp4) 4.0 l/min CI(MOD-sp4) 2.9 l/min/m\S\2 SV(MOD-sp4) 32.0 ml SI(MOD-sp4) 23.0 ml/m\S\2 CO(MOD-sp2) 4.3 l/min CI(MOD-sp2) 3.1 l/min/m\S\2 SV(MOD-sp2) 35.0 ml SI(MOD-sp2) 25.2 ml/m\S\2 Doppler Measurements and Calculations MV A max jensen 115.5 cm/sec Ao V2 max 123.5 cm/sec Ao max PG 6.1 mmHg Ao max PG (full) 3.7 mmHg LV V1 max PG 2.5 mmHg LV V1 max 77.2 cm/sec PA V2 max 74.5 cm/sec PA max PG 2.3 mmHg TR max jensen 298.2 cm/sec
--- NOTE | 2016-09-25 19:15 | Progress Note ---
Medicine Progress Note Date & Time of Visit: Sep 25, 2016 at 18:52. Subjective Pt was seen and examined Pt is sleeping with son at bedside does not seems to be in distress Objective Last 8 Hrs Date Time Temp Pulse Resp B/P Pulse Ox O2 Delivery O2 Flow Rate FiO2 09/25/16 15:54 36.5 100 20 140/74 96 Nasal Cannula 2.0 09/25/16 15:51 140 09/25/16 15:10 142 09/25/16 11:56 92 Nasal Cannula 3.0 09/25/16 11:19 36.6 73 20 112/63 98 Nasal Cannula 3.0 09/25/16 10:56 123 Physical Exam: General-SLEEPING Head- atraumatic Eyes- PERRL, EOMI ENT- oropharynx clear Neck- supple Lungs- poor air entry Heart- tachycardia, Irregular rhythm Abdomen- normal bowel sounds, soft Extremities- no pretibial edema Neuro-sleeping Skin- warm & dry Laboratory Results: Last 24 Hours Test 09/24/16 20:12 09/25/16 01:35 09/25/16 02:48 09/25/16 03:12 Total Creatine Kinase 45 U/L 42 U/L Creatine Kinase MB 4.1 ng/ml 4.4 ng/ml Creatine Kinase MB Ratio 9.1 10.5 Troponin I 0.028 ng/ml 0.033 ng/ml White Blood Count 7.68 K/uL Red Blood Count 3.43 M/uL Hemoglobin 9.3 g/dL Hematocrit 32.2 % Mean Corpuscular Volume 93.9 fL Mean Corpuscular Hemoglobin 27.1 pg Mean Corpuscular Hemoglobin Concent 28.9 g/dl RDW Standard Deviation 55.3 fL RDW Coefficient of Variation 16.2 % Platelet Count 93 K/uL Platelet Estimate DECREASED Activated Partial Thromboplast Time 28.5 SECONDS Partial Thromboplastin Ratio 1.1 Magnesium Level 2.0 mg/dl Bedside Glucose 105 mg/dl Arterial Blood pH 7.24 Arterial Blood Partial Pressure CO2 101 mmHg Arterial Blood Partial Pressure O2 123 mm/Hg Arterial Blood HCO3 43 mmol/L Arterial Blood Oxygen Saturation 97.3 % Arterial Blood Base Excess 12.8 mEq/L Arterial Blood Gas Delivery 3 L O2 [place] Test POS Sodium Level 140 mmol/L Potassium Level 5.0 mmol/L Chloride Level 94 mmol/L Carbon Dioxide Level 42 mmol/L Anion Gap 4.0 mmol/L Blood Urea Nitrogen 27 mg/dl Creatinine 0.61 mg/dl Est Creatinine Clear Calc Drug Dose 43.1 ml/min Estimated GFR () 94.5 Estimated GFR (Non- 81.5 BUN/Creatinine Ratio 43.6 Random Glucose 104 mg/dl Calcium Level 7.8 mg/dl Test 09/25/16 08:30 09/25/16 16:37 Arterial Blood pH 7.28 Arterial Blood Partial Pressure CO2 93 mmHg Arterial Blood Partial Pressure O2 56 mm/Hg Arterial Blood HCO3 42 mmol/L Arterial Blood Oxygen Saturation 82.0 % Arterial Blood Base Excess 13.0 mEq/L Arterial Blood Gas Delivery 2L [place] Test POS Bedside Glucose 86 mg/dl Assessment & Plan NEW ONSET ATRIAL FIBRILLATION WITH RVR Rate initially up to 160s, improved to 130s-140s with 1 dose IV Lopressor 5 mg Continue lopressor 25 mg BID Due to low BP another to titrated BB will give another dose of digoxin electrolytes wnl CHADS2 score 3 heparin drip was d/c due to drop in platelet case discussed with Dr. Hansen ECHO Atrial fibrillation with rapid ventricular rate was present at the time of the echocardiogram. * The left ventricular ejection fraction is grossly normal. * The right ventricle is moderately dilated. * The right ventricular systolic function is moderately reduced. * Severe biatrial enlargement is present. * There is moderate tricuspid regurgitation. * There is mild mitral regurgitation. * Moderate to severe pulmonary hypertension is present. * The PA systolic pressure is calculated to be 63 mm Hg. NONISCHEMIC CARDIOMYOPATHY decompensated congestive heart failure ProBNP is 15,000; CXR with left and trace right pleural effusions Monitor daily weight and intake/ output Received lasix IV will consider to give on dose of lasix, will need to be cautious with the low BP CHRONIC RESPIRATORY FAILURE/ SEVERE COPD Saturating well on her chronic 2 liters NC CXR on admission shown R lung base pleural effusion with right base opacities similar to previous x-ray No sign of infection Repeat ABG showed respiratory acidosis ABG is slightly improved compare to the previous abg discussed with son about BIPAP to blow out some of the co2 Son said no to bipap because she does not tolerate it well Son said that she looks comfortable and no BIPAP for now CAD Prior cath 2007 showed diffuse mild disease and 50% RCA lesion Asymptomatic continue asa TOBACCO ABUSE Counseling on smoking cessation DVT PROPHYLAXIS D/C IV heparin due to drop on platelet On SCDs CODE STATUS DNR Consultants: cardiology Current Inpatient Medications: Current Inpatient Medications Medications (Trade) Dose Ordered Sig/Jesús Route Start Time Stop Time Status Last Admin Dose Admin Acetaminophen (Tylenol Tab) 650 mg Q4H PRN PO 09/24/16 16:15 10/24/16 16:14 Ondansetron HCl (Zofran Inj) 4 mg Q6H PRN IV 09/24/16 16:15 10/24/16 16:14 Aspirin (Ecotrin Tab) 81 mg DAILY PO 09/25/16 09:00 10/25/16 08:59 09/25/16 08:01 81 MG Multivitamins (Multivitamin Tab) 1 tab DAILY PO 09/25/16 09:00 10/25/16 08:59 09/25/16 08:01 1 TAB Ipratropium [place] (Atrovent Hfa Inhaler) 2 puffs QID PRN INH 09/24/16 16:15 10/24/16 16:14 Levalbuterol (Xopenex Hfa Inhaler) 2 puffs Q4H PRN INH 09/24/16 16:15 10/24/16 16:14 Metoprolol Tartrate (Lopressor Tab) 12.5 mg BID PO 09/24/16 21:00 10/24/16 20:59 09/25/16 08:01 12.5 MG Metoprolol Tartrate (Lopressor Iv) 2.5 mg Q4 PRN IV 09/24/16 20:15 10/24/16 19:44 09/25/16 15:10 2.5 MG
[2016-09-25 23:56] LABS: ALLEN TEST POS (POS); ARTERIAL BLD GAS O2 SATURATION 96.3 % (90-95); ARTERIAL BLOOD GAS HCO3 44 mmol/L (19-24); ARTERIAL BLOOD GAS PO2 98 mm/Hg (80-95); ARTERIAL BLOOD GAS pH 7.33 (7.35-7.45); O2 ADMINISTRATION 40% BIPAP
[2016-09-26] VITALS (16 sets, daily range): BP systolic 109–141; BP diastolic 58–79; PULSE 87–123; TEMP 36.4–37; O2SAT 92–100
[2016-09-26] MEDS ORDERED: LEVALBUTEROL/IPRATROPIUM NEB INH STA (00:29)
[2016-09-26] MEDS ORDERED: SODIUM CHLORIDE 0.9% 500ML 500 ML IV ONE (00:30)
[2016-09-26] MEDS ORDERED: LEVALBUTEROL/IPRATROPIUM NEB INH PRN (00:30)
[2016-09-26] MEDS ORDERED: LEVALBUTEROL 1.25MG/0.5ML NEB INH STA (00:52)
[2016-09-26] MEDS ORDERED: IPRATROPIUM BROMIDE NEB SOLN 0.02% 2.5 ML VIAL INH STA (00:52)
[2016-09-26] MEDS ORDERED: METHYLPREDNISOLONE IV 40 MG in SYRINGE 0 ML IV ONE (01:00)
[2016-09-26] MEDS ORDERED: IPRATROPIUM BROMIDE NEB SOLN 0.02% 2.5 ML VIAL INH PRN (01:00)
[2016-09-26] MEDS ORDERED: LEVALBUTEROL 1.25MG/0.5ML NEB INH PRN (01:00)
[2016-09-26] MEDS: ALBUMIN HUMAN 25% 12.5 GM/50 ML VIAL IV SCH ×2 (01:44→02:06)
[2016-09-26] MEDS: IPRATROPIUM BROMIDE NEB SOLN 0.02% 2.5 ML VIAL INH SCH ×4 (02:45→20:15)
[2016-09-26] MEDS: LEVALBUTEROL 1.25MG/0.5ML NEB INH SCH ×4 (02:45→20:15)
[2016-09-26] MEDS ORDERED: LEVALBUTEROL/IPRATROPIUM NEB INH SCH (03:00)
[2016-09-26] MEDS: METOPROLOL TARTRATE 1 MG/ML VIAL IV PRN ×3 (05:43→23:37)
[2016-09-26 07:08] LABS: ARTERIAL BLD GAS O2 SATURATION 94.6 % (90-95); ARTERIAL BLOOD GAS BASE EXCESS 14.1 mEq/L (-9-1.8); ARTERIAL BLOOD GAS HCO3 40 mmol/L (19-24); ARTERIAL BLOOD GAS PO2 78 mm/Hg (80-95); ARTERIAL BLOOD GAS pH 7.44 (7.35-7.45)
[2016-09-26 07:09] LABS: ALLEN TEST POS (POS); O2 ADMINISTRATION 40%
[2016-09-26 07:41] LABS: BUN/CREATININE RATIO 61.3 (10-20); CALCIUM 7.9 mg/dl (8.5-10.1); CREATININE 0.41 mg/dl (0.60-1.20); POTASSIUM 4.5 mmol/L (3.5-5.1)
[2016-09-26 07:45] LABS: HEMATOCRIT 30.6 % (37-47); MEAN CELL VOLUME 91.1 fL (80-100); MEAN CORPUSCULAR HEMOGLOBIN 27.1 pg (25-34); MEAN CORPUSCULAR HGB CONC 29.7 g/dl (32-36); MEAN PLATELET VOLUME 12.3 fL (7.4-10.4); PLATELET COUNT 70 K/uL (130-400); RED BLOOD COUNT 3.36 M/uL (4.2-5.4)
[2016-09-26 07:46] LABS: COMPLETE YES; LARGE PLATELETS 1+; LYMPH % 6.2 %; LYMPH ABS # 0.31 K/uL (1.2-3.4); MONO % 2.4 %; NEUT % 90.4 %
[2016-09-26] MEDS: MULTIVITAMIN TAB PO SCH (07:53)
[2016-09-26] MEDS: ASPIRIN 81 MG ECTAB PO SCH (07:53)
[2016-09-26] MEDS: METOPROLOL TARTRATE 25 MG TAB PO SCH ×2 (07:53→19:29)
--- NOTE | 2016-09-26 10:24 | Progress Note ---
Medicine Progress Note Date & Time of Visit: Sep 26, 2016 at 09:49. Subjective Pt was seen and examined Sitting in bed with no distress she just finished her breakfast pt is awake, follow command she said that she feels better today denies any chest pain, palpitation, dizziness Objective Last 8 Hrs Date Time Temp Pulse Resp B/P Pulse Ox O2 Delivery O2 Flow Rate FiO2 09/26/16 08:38 36.6 100 20 141/79 100 Nasal Cannula 2.0 100 09/26/16 08:00 92 Room Air Nasal Cannula BiPAP 09/26/16 07:16 113 18 93 Nasal Cannula 3.0 09/26/16 05:53 111 97 30 09/26/16 05:43 132 09/26/16 04:11 36.6 95 17 133/64 99 BiPAP 30 09/26/16 04:00 92 Room Air Nasal Cannula BiPAP 09/26/16 02:45 117 100 40 09/26/16 02:45 117 15 100 BiPAP/CPAP 40 Physical Exam: General-no acute distress, pleasant Head- atraumatic Eyes- PERRL, EOMI ENT- oropharynx clear Neck- supple Lungs- poor air entry, no wheezing Heart- Irregular rhythm Abdomen- normal bowel sounds, soft Extremities- no pretibial edema Neuro-sleeping Skin- warm & dry Laboratory Results: Last 24 Hours Test 09/25/16 16:37 09/25/16 23:40 09/26/16 05:50 09/26/16 06:50 Bedside Glucose 86 mg/dl Arterial Blood pH 7.33 7.44 Arterial Blood Partial Pressure CO2 86 mmHg 60 mmHg Arterial Blood Partial Pressure O2 98 mm/Hg 78 mm/Hg Arterial Blood HCO3 44 mmol/L 40 mmol/L Arterial Blood Oxygen Saturation 96.3 % 94.6 % Arterial Blood Base Excess 16.0 mEq/L 14.1 mEq/L Arterial Blood Gas Delivery 40% BIPAP 40% [place] Test POS POS White Blood Count 5.00 K/uL Red Blood Count 3.36 M/uL Hemoglobin 9.1 g/dL Hematocrit 30.6 % Mean Corpuscular Volume 91.1 fL Mean Corpuscular Hemoglobin 27.1 pg Mean Corpuscular Hemoglobin Concent 29.7 g/dl Platelet Count 70 K/uL Mean Platelet Volume 12.3 fL Neutrophils (%) (Auto) 90.4 % Lymphocytes (%) (Auto) 6.2 % Monocytes (%) (Auto) 2.4 % Eosinophils (%) (Auto) 0.0 % Basophils (%) (Auto) 0.0 % Neutrophils # (Auto) 4.52 K/uL Lymphocytes # (Auto) 0.31 K/uL Monocytes # (Auto) 0.12 K/uL Eosinophils # (Auto) 0.00 K/uL Basophils # (Auto) 0.00 K/uL RDW Standard Deviation 53.7 fL RDW Coefficient of Variation 16.2 % Immature Granulocyte % (Auto) 1.0 % Immature Granulocyte # (Auto) 0.05 K/uL Large Platelets 1+ Sodium Level 140 mmol/L Potassium Level 4.5 mmol/L Chloride Level 95 mmol/L Carbon Dioxide Level 37 mmol/L Anion Gap 8.0 mmol/L Blood Urea Nitrogen 25 mg/dl Creatinine 0.41 mg/dl Est Creatinine Clear Calc Drug Dose 79.4 ml/min Estimated GFR () 107.7 Estimated GFR (Non- 92.9 BUN/Creatinine Ratio 61.3 Random Glucose 83 mg/dl Calcium Level 7.9 mg/dl Procalcitonin < 0.05 ng/mL Assessment & Plan NEW ONSET ATRIAL FIBRILLATION WITH RVR Rate initially up to 160s on admission On lopressor 12.5 mg BID Continue IV lopressor 5 mg prn Rate is btw 110 to 130 BP is stable, will consider to increase the metoprolol to 25 mg BID or to add diltiazem Will follow cardio recommendation Received digoxin yesterday will give another dose of digoxin today CHADS2 score 3 heparin drip was d/c due to drop in platelet Continue aspirin Case discussed with Dr. Hansen ECHO Atrial fibrillation with rapid ventricular rate was present at the time of the echocardiogram. * The left ventricular ejection fraction is grossly normal. * The right ventricle is moderately dilated. * The right ventricular systolic function is moderately reduced. * Severe biatrial enlargement is present. * There is moderate tricuspid regurgitation. * There is mild mitral regurgitation. * Moderate to severe pulmonary hypertension is present. * The PA systolic pressure is calculated to be 63 mm Hg. NONISCHEMIC CARDIOMYOPATHY decompensated congestive heart failure ProBNP is 15,000; CXR with left and trace right pleural effusions Monitor daily weight and intake/ output Continue asa daily clinical improved CHRONIC RESPIRATORY FAILURE/ SEVERE COPD Saturating well on her chronic 2 liters NC CXR on admission shown R lung base pleural effusion with right base opacities similar to previous x-ray No sign of infection Repeat ABG showed respiratory acidosis ABG is slightly improved compare to the previous abg discussed with son about BIPAP to blow out some of the co2 Son said no to bipap because she does not tolerate it well 09/26 Was put on BiPAP last night Respiratory clinically improved ABG this morning showed normal Ph CO2 improved Respond very well on bipap Now on 2NC L saturated very well Continue nebs treatment will do PT/OT Continue monitor pt closely Anemia Hbg 9.1 No active bleeding Continue monitor cbc CAD Prior cath 2007 showed diffuse mild disease and 50% RCA lesion Asymptomatic continue asa Thrombocytopenia Platelet on adm was 108 today platelet 70 heparin drip was discontinue will consider to d/c subq heparin as well If platelet continue to drop, will order HIT panel TOBACCO ABUSE Counseling on smoking cessation Pt said that she might cut it down DVT PROPHYLAXIS D/C IV heparin due to drop on platelet will consider to d/c heparin subq due to further drop in platelet On SCDs CODE STATUS DNR Consultants: cardiology Current Inpatient Medications: Current Inpatient Medications Medications (Trade) Dose Ordered Sig/Jesús Route Start Time Stop Time Status Last Admin Dose Admin Acetaminophen (Tylenol Tab) 650 mg Q4H PRN PO 09/24/16 16:15 10/24/16 16:14 Ondansetron HCl (Zofran Inj) 4 mg Q6H PRN IV 09/24/16 16:15 10/24/16 16:14 Aspirin (Ecotrin Tab) 81 mg DAILY PO 09/25/16 09:00 10/25/16 08:59 09/26/16 07:53 81 MG Multivitamins (Multivitamin Tab) 1 tab DAILY PO 09/25/16 09:00 10/25/16 08:59 09/26/16 07:53 1 TAB Metoprolol Tartrate (Lopressor Tab) 12.5 mg BID PO 09/24/16 21:00 10/24/16 20:59 09/26/16 07:53 12.5 MG Metoprolol Tartrate (Lopressor Iv) 5 mg Q4 PRN IV 09/25/16 20:00 10/25/16 19:59 09/26/16 05:43 5 MG Ipratropium [place] (Atrovent 0.02% 0.5MG/2.5ML Neb) 0.5 mg Q6R INH 09/26/16 03:00 10/26/16 02:59 09/26/16 07:16 0.5 MG Levalbuterol (Xopenex 1.25MG/ 0.5ML Neb) 1.25 mg Q6R INH 09/26/16 03:00 10/26/16 02:59 09/26/16 07:16 1.25 MG Ipratropium [place] (Atrovent 0.02% 0.5MG/2.5ML Neb) 0.5 mg Q4H PRN INH 09/26/16 01:00 10/26/16 00:59 Levalbuterol (Xopenex 1.25MG/ 0.5ML Neb) 1.25 mg Q4H PRN INH 09/26/16 01:00 10/26/16 00:59
--- NOTE | 2016-09-26 10:26 | Cardiology Follow-Up ---
Subjective General Date of Service: Sep 26, 2016. Chief Complaint: follow up atrial fibrilalation Pt evaluation today including: conversation w/ patient, physical exam History of Present Illness The patient is a 86 year old female seen in follow up. Patient more alert today, with lower CO2 on chem panel after transient bipap treatment. Still in AF with RVR, but blood pressure now better. Echo 09/25/16 revealed RV dysfunction, grossly normal LVEF, and biatrial enlargement, moderate TR, and moderate to severe pulmonary HTN. Allergies Coded Allergies: Sulfa Antibiotics (Verified Allergy, Intermediate, ?, 09/24/16) Penicillins (Unverified Allergy, Mild, 09/24/16) Social History Smoking Status: Current Every Day Smoker Hx Tobacco Use In Past Year?: Yes Hx Alcohol Use - Type And Amou: No Hx Substance Use - Type And Am: No Problem List Medical Problems: (1) Atrial fibrillation with RVR Status: Acute (2) CHF (congestive heart failure) Status: Acute (3) Generalized weakness Status: Acute Physical Exam Vital Signs Last Vital Signs Documentation Date Time Temp Pulse Resp B/P Pulse Ox O2 Delivery O2 Flow Rate FiO2 09/26/16 08:38 36.6 100 20 141/79 100 Nasal Cannula 2.0 100 09/26/16 05:53 30 Physical Exam Constitutional: Level of Distress: NAD Head: normocephalic Neck: supple Lungs: Auscultation: no wheezing, pertinent finding (decreased BS at bases ) Cardiovascular: Heart Auscultation: RRR, tachycardia, II/ PATITO Musculoskeletal: normal Extremities: no cyanosis, no edema Assessment and Plan Assessment and Plan Last Resulted 09/26/16 05:50 Red Blood Count 3.36, Mean Corpuscular Volume 91.1, Mean Corpuscular Hemoglobin 27.1, Mean Corpuscular Hemoglobin Concent 29.7, Mean Platelet Volume 12.3, Neutrophils (%) (Auto) 90.4, Lymphocytes (%) (Auto) 6.2, Monocytes (%) (Auto) 2.4, Eosinophils (%) (Auto) 0.0, Basophils (%) (Auto) 0.0, Neutrophils # (Auto) 4.52, Lymphocytes # (Auto) 0.31, Monocytes # (Auto) 0.12, Eosinophils # (Auto) 0.00, Basophils # (Auto) 0.00 Last Resulted 09/26/16 05:50 Impression: 86 year old female 1. AECOPD with hypercapnic respiratory failure 2. AF, RVR, chronicity unknown 3. RV dysfunction pulmonary HTN likely due to underlying lung disease 4. Thrombocytopenia Plan: now that BP better agree with initiating oral metoprolol. Will add oral digoxin as well. Not on anticoag or DVT prophylaxis due to thrombocytopenia Laboratory Results Last 24 Hours Test 09/25/16 16:37 09/25/16 23:40 09/26/16 05:50 09/26/16 06:50 Bedside Glucose 86 mg/dl Arterial Blood pH 7.33 7.44 Arterial Blood Partial Pressure CO2 86 mmHg 60 mmHg Arterial Blood Partial Pressure O2 98 mm/Hg 78 mm/Hg Arterial Blood HCO3 44 mmol/L 40 mmol/L Arterial Blood Oxygen Saturation 96.3 % 94.6 % Arterial Blood Base Excess 16.0 mEq/L 14.1 mEq/L Arterial Blood Gas Delivery 40% BIPAP 40% [place] Test POS POS White Blood Count 5.00 K/uL Red Blood Count 3.36 M/uL Hemoglobin 9.1 g/dL Hematocrit 30.6 % Mean Corpuscular Volume 91.1 fL Mean Corpuscular Hemoglobin 27.1 pg Mean Corpuscular Hemoglobin Concent 29.7 g/dl Platelet Count 70 K/uL Mean Platelet Volume 12.3 fL Neutrophils (%) (Auto) 90.4 % Lymphocytes (%) (Auto) 6.2 % Monocytes (%) (Auto) 2.4 % Eosinophils (%) (Auto) 0.0 % Basophils (%) (Auto) 0.0 % Neutrophils # (Auto) 4.52 K/uL Lymphocytes # (Auto) 0.31 K/uL Monocytes # (Auto) 0.12 K/uL Eosinophils # (Auto) 0.00 K/uL Basophils # (Auto) 0.00 K/uL RDW Standard Deviation 53.7 fL RDW Coefficient of Variation 16.2 % Immature Granulocyte % (Auto) 1.0 % Immature Granulocyte # (Auto) 0.05 K/uL Large Platelets 1+ Sodium Level 140 mmol/L Potassium Level 4.5 mmol/L Chloride Level 95 mmol/L Carbon Dioxide Level 37 mmol/L Anion Gap 8.0 mmol/L Blood Urea Nitrogen 25 mg/dl Creatinine 0.41 mg/dl Est Creatinine Clear Calc Drug Dose 79.4 ml/min Estimated GFR () 107.7 Estimated GFR (Non- 92.9 BUN/Creatinine Ratio 61.3 Random Glucose 83 mg/dl Calcium Level 7.9 mg/dl Procalcitonin < 0.05 ng/mL
[2016-09-26] MEDS ORDERED: DIGOXIN 0.125 MG TAB PO ONE (10:30)
[2016-09-26] MEDS: DIGOXIN 0.125 MG TAB PO SCH (15:15)
[2016-09-27] VITALS (13 sets, daily range): BP systolic 95–110; BP diastolic 59–76; PULSE 55–119; TEMP 36.7–37.3; O2SAT 94–100
[2016-09-27] MEDS: LEVALBUTEROL 1.25MG/0.5ML NEB INH SCH ×4 (02:48→21:35)
[2016-09-27] MEDS: IPRATROPIUM BROMIDE NEB SOLN 0.02% 2.5 ML VIAL INH SCH ×4 (02:48→21:35)
[2016-09-27] MEDS: METOPROLOL TARTRATE 1 MG/ML VIAL IV PRN ×3 (03:08→16:29)
[2016-09-27 07:49] LABS: MEAN CELL VOLUME 91.2 fL (80-100); MEAN CORPUSCULAR HEMOGLOBIN 27.4 pg (25-34); WHITE BLOOD COUNT 10.33 K/uL (4.8-10.8)
[2016-09-27 07:52] LABS: PLATELET COUNT 64 K/uL (130-400); PLT ESTIMATE DECREASED
[2016-09-27] MEDS: MULTIVITAMIN TAB PO SCH (08:14)
[2016-09-27] MEDS: METOPROLOL TARTRATE 25 MG TAB PO SCH ×2 (08:14→20:37)
[2016-09-27 08:37] LABS: BUN/CREATININE RATIO 36.5 (10-20); CALCIUM 8.1 mg/dl (8.5-10.1); CREATININE 0.45 mg/dl (0.60-1.20); POTASSIUM 4.4 mmol/L (3.5-5.1)
[2016-09-27] MEDS ORDERED: METOPROLOL TARTRATE 25 MG TAB PO ONE ×2 (09:00→09:15)
--- NOTE | 2016-09-27 09:02 | Cardiology Follow-Up ---
Subjective General Date of Service: Sep 27, 2016. Chief Complaint: follow up atrial fibrilalation Pt evaluation today including: conversation w/ patient, physical exam, chart review, lab review, review of studies, review of inpatient medication list History of Present Illness The patient is a 86 year old female seen in follow-up. Patient initially asleep upon entering the room. Quickly awakens to verbal stimuli. She is awake and alert. Denies chest discomfort, palpitations, lightheadedness, dizziness. Dyspnea on exertion and nonproductive cough unchanged. No active wheeze. Denies orthopnea or paroxysmal nocturnal dyspnea. Average heart rate approximately 125 bpm on telemetry. She remains in atrial fibrillation. Tolerating low-dose beta zachary and digoxin. Anticoagulation on hold due to thrombocytopenia. Platelets continued to trend downward. Allergies Coded Allergies: Sulfa Antibiotics (Verified Allergy, Intermediate, ?, 09/24/16) Penicillins (Unverified Allergy, Mild, 09/24/16) Social History Smoking Status: Current Every Day Smoker Hx Tobacco Use In Past Year?: Yes Hx Alcohol Use - Type And Amou: No Hx Substance Use - Type And Am: No Problem List Medical Problems: (1) Atrial fibrillation with RVR Status: Acute (2) CHF (congestive heart failure) Status: Acute (3) Generalized weakness Status: Acute Review of Systems Respiratory: + cough, + dyspnea on exertion, No dyspnea at rest, No hemoptysis , No shortness of breath, No sputum, No wheezing Cardiac: No PND, No chest pain, No claudication, No edema, No orthopnea, No palpitations Physical Exam Vital Signs Last Vital Signs Documentation Date Time Temp Pulse Resp B/P Pulse Ox O2 Delivery O2 Flow Rate FiO2 09/27/16 08:14 110/68 09/27/16 07:32 143 09/27/16 07:30 37.0 16 95 Room Air 09/27/16 06:56 3.0 09/27/16 00:00 30 Physical Exam Constitutional: Level of Distress: NAD, chronically ill Head: normocephalic Neck: supple Lungs: Auscultation: no wheezing, pertinent finding (decreased BS at bases ) Cardiovascular: Heart Auscultation: tachycardia, II/ PATITO, irregular rate rhythm Peripheral Pulses: Radial Pulse: normal on the left, normal on the right Abdomen: Bowel Sounds: normal Inspection & Palpation: soft, non-distended Musculoskeletal: normal Extremities: no cyanosis, no edema Neurologic: Gait & Station: pertinent finding (No focal motor deficit) Cranial Nerves: grossly intact Assessment and Plan Assessment and Plan IMP: 1. Paroxysmal atrial fibrillation with rapid ventricular response - unknown chronicity 2. Left ventricular dysfunction with pulmonary hypertension - most likely secondary to underlying COPD 3. Acute exacerbation of COPD with hypercapnic respiratory failure 4. Thrombocytopenia - Anticoagulation on hold - Platelets continue to trend downward 5. Normocytic Anemia - hgb stable Plan: Increase metoprolol to 25 mg twice daily. Hold anticoagulation at this time. Continue low-dose aspirin. Continue telemetry monitoring at this time. COPD management as per primary service. Repeat CBC in the a.m. We'll continue to follow closely during hospitalization. Laboratory Results Last 24 Hours Test 09/27/16 06:27 White Blood Count 10.33 K/uL Red Blood Count 3.40 M/uL Hemoglobin 9.3 g/dL Hematocrit 31.0 % Mean Corpuscular Volume 91.2 fL Mean Corpuscular Hemoglobin 27.4 pg Mean Corpuscular Hemoglobin Concent 30.0 g/dl RDW Standard Deviation 54.2 fL RDW Coefficient of Variation 16.3 % Platelet Count 64 K/uL Platelet Estimate DECREASED Sodium Level 143 mmol/L Potassium Level 4.4 mmol/L Chloride Level 97 mmol/L Carbon Dioxide Level 44 mmol/L Anion Gap 2.0 mmol/L Blood Urea Nitrogen 16 mg/dl Creatinine 0.45 mg/dl Est Creatinine Clear Calc Drug Dose 72.3 ml/min Estimated GFR () 104.4 Estimated GFR (Non- 90.1 BUN/Creatinine Ratio 36.5 Random Glucose 86 mg/dl Calcium Level 8.1 mg/dl
--- NOTE | 2016-09-27 09:16 | Clinical Documentation Query ---
QUERY 1 OF [address] DOWNEY, In your clinical opinion is this patient being managed for: ( ) Acute diastolic CHF ( ) Other explanation of clinical findings (Please Explain) ( ) Unable to determine (Please Define) ( ) Need to Discuss ( ) Not Agree The medical record reflects the following clinical findings, treatment, and risk factors. Clinical Indicators:86 yo female presented with dyspnea and tachycardia. Found to be in A fib. CXR showed pleural fluid at the right lung base with right basilar opacities. BNP 82304. ECHO showed RV moderately reduced systolic function. LV EF grossly normal Treatment:O2 support, tele, IV lasix, IV lopressor, IV digoxin, serial cardiac enzymes, cardiology consult, ECHO, tele Risk Factors: age, CAD, COPD, HTN, nonischemic cardiomyopathy, A fib QUERY 2 OF 3 In your clinical opinion is this patient being managed for: ( ) Acute and chronic respiratory failure ( ) Other explanation of clinical findings (Please Explain) ( ) Unable to determine (Please Define) ( ) Need to Discuss ( ) Not Agree The medical record reflects the following clinical findings, treatment, and risk factors. Clinical Indicators: Upon admission, nursing documentation reflects pt was received with pursed lip breathing with accessory muscle use, gasping for breath. Pt became increasingly confused/lethargic with decreasing O2 sats on nasal O2 support. Continued A fib. ABG 7.33/86/98 Treatment: BIPAP x 8 hours, ABG's, IV digoxin, IV solumedrol, xopenex, atrovent, IV lopressor, tele Risk Factors: age, severe COPD, A fib QUERY 3 OF 3 In your clinical opinion is this patient being managed for: ( ) Encephalopathy ( ) Other explanation of clinical findings (Please Explain) ( ) Unable to determine (Please Define) ( ) Need to Discuss ( ) Not Agree The medical record reflects the following clinical findings, treatment, and risk factors. Clinical Indicators:Nursing documented pt becoming lethargic and eventually only responsive to painful stimuli x 6 hours. Pt mentation eventually improved with additional treatments. Treatment: BIPAP x 8 hours, ABG's, IV digoxin, IV solumedrol, xopenex, atrovent, IV lopressor, tele Risk Factors: A fib, respiratory failure, Afib, CHF, severe COPD Encephalopathy may be caused by an infectious agent, a metabolic dysfunction, brain tumor or increased pressure in the skull, prolonged exposure to toxins, chronic progressive trauma, poor nutrition, or a lack of oxygen or blood flow to the brain. Please clarify and document your clinical opinion in the progress notes and discharge summary. Terms such as "probable", "suspected", "likely", "questionable", "possible", or "still to be ruled out" are acceptable. IF IN AGREEMENT, YOU MUST DOCUMENT ABOVE DIAGNOSTIC STATEMENT IN DAILY PROGRESS NOTES AND DISCHARGE SUMMARY. This document is not part of the patient's record. Thank You, Jessica Chew RN [phone]
[2016-09-27] MEDS: DIGOXIN 0.125 MG TAB PO SCH (15:48)
--- NOTE | 2016-09-27 15:49 | Progress Note ---
Medicine Progress Note Date & Time of Visit: Sep 27, 2016 at 15:24. Subjective Pt was seen and examined Sitting in chair napping with 2 sons in the room with no distress nurse outreach case manager and I had a long discussion with the sons about her COPD and CO2 retention Sons understands that her mother will benefit from BIPAP she was feeling much better yesterday compared to today last night she did not use the Bipap She looks a little tired and sleepy this morning She denies any chest pain, palpitation, dizziness Objective Last 8 Hrs Date Time Temp Pulse Resp B/P Pulse Ox O2 Delivery O2 Flow Rate FiO2 09/27/16 14:41 55 16 98 Nasal Cannula 2.0 09/27/16 12:00 Nasal Cannula 3.0 09/27/16 11:54 36.9 77 18 95/63 94 Nasal Cannula 2.0 09/27/16 11:34 95 09/27/16 08:14 110/68 09/27/16 08:00 Nasal Cannula 3.0 09/27/16 07:32 143 09/27/16 07:30 37.0 63 16 95/62 95 Room Air Physical Exam: General-tired, sleepy Head- atraumatic Eyes- PERRL, EOMI ENT- oropharynx clear Neck- supple Lungs- poor air entry, no wheezing Heart- Irregular rhythm Abdomen- normal bowel sounds, soft Extremities- no pretibial edema Neuro-sleeping Skin- warm & dry Laboratory Results: Last 24 Hours Test 09/27/16 06:27 White Blood Count 10.33 K/uL Red Blood Count 3.40 M/uL Hemoglobin 9.3 g/dL Hematocrit 31.0 % Mean Corpuscular Volume 91.2 fL Mean Corpuscular Hemoglobin 27.4 pg Mean Corpuscular Hemoglobin Concent 30.0 g/dl RDW Standard Deviation 54.2 fL RDW Coefficient of Variation 16.3 % Platelet Count 64 K/uL Platelet Estimate DECREASED Sodium Level 143 mmol/L Potassium Level 4.4 mmol/L Chloride Level 97 mmol/L Carbon Dioxide Level 44 mmol/L Anion Gap 2.0 mmol/L Blood Urea Nitrogen 16 mg/dl Creatinine 0.45 mg/dl Est Creatinine Clear Calc Drug Dose 72.3 ml/min Estimated GFR () 104.4 Estimated GFR (Non- 90.1 BUN/Creatinine Ratio 36.5 Random Glucose 86 mg/dl Calcium Level 8.1 mg/dl Assessment & Plan NEW ONSET ATRIAL FIBRILLATION WITH RVR Rate initially up to 160s on admission On lopressor 12.5 mg BID Continue IV lopressor 5 mg prn Rate is btw 110 to 130 BP is stable, will consider to increase the metoprolol to 25 mg BID or to add diltiazem Will follow cardio recommendation Received digoxin yesterday will give another dose of digoxin today CHADS2 score 3 heparin drip was d/c due to drop in platelet Continue aspirin 09/27 Continue remains in Afib HR still running btw 110 to 135 Metoprolol increase to 25mg BID by cardiology Not on heparin drip because of low platelet continue low dose aspirin Consider digoxin if HR still in the 120's ECHO Atrial fibrillation with rapid ventricular rate was present at the time of the echocardiogram. * The left ventricular ejection fraction is grossly normal. * The right ventricle is moderately dilated. * The right ventricular systolic function is moderately reduced. * Severe biatrial enlargement is present. * There is moderate tricuspid regurgitation. * There is mild mitral regurgitation. * Moderate to severe pulmonary hypertension is present. * The PA systolic pressure is calculated to be 63 mm Hg. NONISCHEMIC CARDIOMYOPATHY decompensated congestive heart failure ProBNP is 15,000; CXR with left and trace right pleural effusions Monitor daily weight and intake/ output Continue asa daily Metoprolol increased to 25mg BID CHRONIC RESPIRATORY FAILURE/ SEVERE COPD Saturating well on her chronic 2 liters NC CXR on admission shown R lung base pleural effusion with right base opacities similar to previous x-ray No sign of infection Repeat ABG showed respiratory acidosis ABG is slightly improved compare to the previous abg discussed with son about BIPAP to blow out some of the co2 Son said no to bipap because she does not tolerate it well 09/26 Was put on BiPAP last night Respiratory clinically improved ABG this morning showed normal Ph CO2 improved Respond very well on bipap Now on 2NC L saturated very well Continue nebs treatment will do PT/OT Continue monitor pt closely 09/27 Looks much better yesterday did not use BiPap last night sleepiness may be related to CO2 retention I believe pt will benefit from Bipap will get a nocturnal pulse and ABG in am Consider to start on an anticholinergics, will defer to pulmonary Consult pulmonology Anemia Hbg 9.3 No active bleeding Continue monitor cbc CAD Prior cath 2007 showed diffuse mild disease and 50% RCA lesion Asymptomatic continue asa Thrombocytopenia Platelet on adm was 108 today platelet 64 heparin drip was discontinued Continue monitor platelet If platelet continue to drop, will order HIT panel TOBACCO ABUSE Counseling on smoking cessation Pt said that she might cut it down DVT PROPHYLAXIS D/C heparin due to drop on platelet On SCDs CODE STATUS DNR Consultants: cardiology Pulmonary PT/OT Current Inpatient Medications: Current Inpatient Medications Medications (Trade) Dose Ordered Sig/Jesús Route Start Time Stop Time Status Last Admin Dose Admin Acetaminophen (Tylenol Tab) 650 mg Q4H PRN PO 09/24/16 16:15 10/24/16 16:14 Ondansetron HCl (Zofran Inj) 4 mg Q6H PRN IV 09/24/16 16:15 10/24/16 16:14 Aspirin (Ecotrin Tab) 81 mg DAILY PO 09/25/16 09:00 10/25/16 08:59 Future Hold 09/26/16 07:53 81 MG Multivitamins (Multivitamin Tab) 1 tab DAILY PO 09/25/16 09:00 10/25/16 08:59 09/27/16 08:14 1 TAB Metoprolol Tartrate (Lopressor Iv) 5 mg Q4 PRN IV 09/25/16 20:00 10/25/16 19:59 09/27/16 07:32 5 MG Ipratropium [place] (Atrovent 0.02% 0.5MG/2.5ML Neb) 0.5 mg Q6R INH 09/26/16 03:00 10/26/16 02:59 09/27/16 14:38 0.5 MG Levalbuterol (Xopenex 1.25MG/ 0.5ML Neb) 1.25 mg Q6R INH 09/26/16 03:00 10/26/16 02:59 09/27/16 14:38 1.25 MG Ipratropium [place] (Atrovent 0.02% 0.5MG/2.5ML Neb) 0.5 mg Q4H PRN INH 09/26/16 01:00 10/26/16 00:59 Levalbuterol (Xopenex 1.25MG/ 0.5ML Neb) 1.25 mg Q4H PRN INH 09/26/16 01:00 10/26/16 00:59 Digoxin (Lanoxin Tab) 0.125 mg DAILY@16 PO 09/26/16 16:00 10/26/16 15:59 09/26/16 15:15 0.125 MG Metoprolol Tartrate (Lopressor Tab) 25 mg BID PO 09/27/16 21:00 10/27/16 20:59
--- NOTE | 2016-09-27 20:04 | Pulmonary Consultation ---
History General Date of Service: Sep 27, 2016. Stated Complaint: Atrial Fibrillation With Rvr, COPD exacerbation HPI The patient is a 86 year old female who presents to [facility] with complaints of Atrial Fibrillation With Rvr. The patient's primary care provider is Eron Crespo M.D.. 86year-old female admitted with hypoxemia, failure to thrive and bilateral lower extremity edema. Patient does have a significant history of: COPD, oxygen dependent on 5 L, chronic smoker, hypertension, coronary artery disease, nonischemic cardiomyopathy (EF= 60%), RV dysfunction by echocardiogram and AAA. Patient has had increasing shortness of breath over the previous 2 weeks with associated nonproductive cough and increasing bilateral lower extremity edema. Patient was treated by her PCP with azithromycin and prednisone taper over one week. As her symptoms did not resolve she was once again given prednisone and started on this yesterday 50 mg. At the time of this evaluation the patient denies: Fever, chills, vertigo, pleurisy, nausea, vomiting, classic cardiac chest pain. Platelet count: 100G32O Carbon dioxide: 4244 (estimated PaCO2 chronically at 68) ProBNP 15,618 BUN/Cr: 16/0.45 Pro-calcitonin < 0.05 AB09/25/16 (0321) 7.24/101/123/43----3 L 09/25/16 (0830) 7.28/93/56/42----2L 09/25/16 (2340) 7.33/86/98/44----40%, BiPAP 09/26/16 (0650) 7.44/60/78/40----40% Chest x-ray (09/24/16) bilateral hilar fullness, parabronchial cuffing, chronic opacification of the right hemithorax with right middle lobe fullness Chest x-ray (01/12/2015) bilateral costophrenic blunting right greater than left with opacification of the right lower lobe Video swallow (01/13/2015) report notes episodes of aspiration during serial swallowing of thin liquid barium which resulted in delayed cough CT angios the chest 03/29/2008: Right-sided pleural effusion areas of loculation with pleural thickening, lateral segment of the right middle lobe/ along very major fissure of bronchiectasis/consolidation Echocardiogram 09/25/16 (A. fib with RVR noted at time of the exam) LV: Within normal limits RV: Moderate dilation, moderately reduced systolic function Biatrial atrial enlargement Moderate tricuspid regurgitation RSVP: 63 mmHg Pulmonary function test 06/01/2010: Report notes mild reversible obstructive ventilatory disease with moderate reversibility Historian: patient, EMS Review of Systems Constitutional: reports: malaise, weakness Eyes: reports: no symptoms ENT: reports: other (dry mouth) Cardiovascular: reports: chest pressure Respiratory: reports: BOWLING, shortness of breath Gastrointestinal: reports: no symptoms Genitourinary - Female: reports: no symptoms Musculoskeletal: reports: myalgias Integumentary: reports: no symptoms Neurologic: reports: no symptoms Psychiatric: reports: no symptoms Endocrine: no symptoms Hematologic / Lymphatic: no symptoms Allergic / Immunologic: no symptoms Past Medical History Past Medical History: #1 anxiety disorder #2 aortic aneurysm #3 cardiomyopathy #4 COPD #5 coronary artery disease #6 chronic hypoxia requiring oxygen support #7 postherpetic neuralgia #8 hypertension #9 previous pneumonia with associated parapneumonic effusion #10 cor pulmonale #11 tobacco: [id number] history Past Surgical History: #1 PTCA 2008 50% occlusion of the RCA Family History FH: CAD (coronary artery disease) BROTHER DAUGHTER Social History Hx Tobacco Use In Past Year?: Yes Smoking Status: Current Every Day Smoker Marital status: Occupational Status: retired History of MDRO History of MDRO: No Allergies Coded Allergies: Sulfa Antibiotics (Verified Allergy, Intermediate, ?, 09/24/16) Penicillins (Unverified Allergy, Mild, 09/24/16) Current Medications Reported Home Medications Medications Dose Route/Sig Max Daily Dose Days Date Category Dose Instructions Atrovent Hfa (Ipratropium [place]) 200 Puffs/3400 Mcg Aers 2 Puffs INH QID PRN 30 09/24/16 Rx Levalbuterol Tartrate Hfa (Levalbuterol Tartrate) 45 Mcg/Act Aer 2 Puffs INH Q4H PRN 09/24/16 Reported Prednisone 10 Mg Tab 10 Mg PO UD 09/24/16 Reported 5 TABS X 2 DAYS, 4 TABS X 2 DAYS, 3 TABS X 1 DAY, 2 TABS X 1 DAY, 1 TAB X 1 DAY Lopressor (Metoprolol Tartrate) 25 Mg Tab 12.5 Mg PO BID 30 01/20/15 Rx Multivitamin (Multiple Vitamin) 1 Tab Tab 1 Tab PO DAILY 01/10/15 Reported Aspirin Ec (Aspirin) 81 Mg Tab 81 Mg PO DAILY 01/10/15 Reported Oxygen Gas 5 Liters NA CONTINOUS 01/10/15 Reported Physical Physical Exam Vital Signs: Date Time Temp Pulse Resp B/P Pulse Ox O2 Delivery O2 Flow Rate FiO2 09/27/16 16:48 36.7 111 16 104/62 98 Nasal Cannula 2.0 09/27/16 16:29 138 09/27/16 16:00 Nasal Cannula 3.0 09/27/16 15:48 131 09/27/16 14:41 55 16 98 Nasal Cannula 2.0 09/27/16 12:00 Nasal Cannula 3.0 09/27/16 11:54 36.9 77 18 95/63 94 Nasal Cannula 2.0 09/27/16 11:34 95 09/27/16 08:14 110/68 09/27/16 08:00 Nasal Cannula 3.0 09/27/16 07:32 143 09/27/16 07:30 37.0 63 16 95/62 95 Room Air 09/27/16 06:56 63 16 95 Nasal Cannula 3.0 09/27/16 04:00 97 Nasal Cannula 3.0 09/27/16 03:11 36.7 87 18 102/76 100 Nasal Cannula 3.0 09/27/16 03:08 153 109/73 09/27/16 02:50 119 16 97 Nasal Cannula 3.0 09/27/16 00:00 97 BiPAP 30 09/26/16 23:56 36.7 112 18 109/73 92 BiPAP 30 09/26/16 23:37 125 109/65 09/26/16 22:45 97 96 30 09/26/16 20:15 87 16 96 Nasal Cannula 3.0 09/26/16 20:00 97 Nasal Cannula 3.0 09/26/16 19:59 36.8 102 20 113/74 97 Nasal Cannula 3.0 General Appearance: moderate distress Head: NORMOCEPHALIC, ATRAUMATIC Eyes: PERRLA, NO DISCHARGE, EOMI, SCLERAE NORMAL, other ENT: other (dry mucous membrane BiPAP system in place) Neck: other (JVD 2+) Respiratory: other (decreased breath sounds bilaterally) Cardiovasular: other (regular rate and rhythm tachycardic) Abdomen: NON TENDER, NORMAL BOWEL SOUNDS, NO REBOUND, NO MASSES, NO GUARDING Genitourinary - Female: EXTERNAL GENITALIA NORMAL Back: NORMAL INSPECTION, NO MIDLINE TENDERNESS, NO CVA TENDERNESS, NO PARAVERTEBRAL TTP Upper Extremities: NO EDEMA, NO DEFORMITY, NORMAL ROM Lower Extremities: NO EDEMA, NO DEFORMITY, NORMAL ROM, other (bilateral lower extremity erythema but no skin breakdown) Pulses: carotid (R) (2+), carotid (L) (2+), dorsalis pedis (R) (2+), dorsalis pedis (L) (2+) Neuro: ALERT, ORIENTED x 3, NORMAL MOTOR EXAM Reflexes: biceps (R) (1+), bicpes (L) (1+), patellar (R) (1+), patellar (L) (1+ ) Babinski Testing: right (patient refused that she has notable discomfort) Psychiatric: NORMAL AFFECT Diagnostics Labs Results Past 24 Hours Test 09/27/16 06:27 Range/Units White Blood Count 10.33 4.8-10.8 K/uL Red Blood Count 3.40 4.2-5.4 M/uL Hemoglobin 9.3 12.0-16.0 g/dL Hematocrit 31.0 37-47 % Mean Corpuscular Volume 91.2 80-100 fL Mean Corpuscular Hemoglobin 27.4 25-34 pg Mean Corpuscular Hemoglobin Concent 30.0 32-36 g/dl RDW Standard Deviation 54.2 36.4-46.3 fL RDW Coefficient of Variation 16.3 11.5-14.5 % Platelet Count 64 130-400 K/uL Platelet Estimate DECREASED Sodium Level 143 136-145 mmol/L Potassium Level 4.4 3.5-5.1 mmol/L Chloride Level 97 98-107 mmol/L Carbon Dioxide Level 44 21-32 mmol/L Anion Gap 2.0 3-11 mmol/L Blood Urea Nitrogen 16 7-18 mg/dl Creatinine 0.45 0.60-1.20 mg/dl Est Creatinine Clear Calc Drug Dose 72.3 ml/min Estimated GFR () 104.4 Estimated GFR (Non- 90.1 BUN/Creatinine Ratio 36.5 10-20 Random Glucose 86 70-99 mg/dl Calcium Level 8.1 8.5-10.1 mg/dl Diagnostic Radiology Chest x-ray (09/24/16) bilateral hilar fullness, parabronchial cuffing, chronic opacification of the right hemithorax with right middle lobe fullness EKG EKG 09/24/2016 atrial fibrillation rate 148 Impression Assessment and Plan 86-year-old female admitted for acute on chronic respiratory failure: #1 Respiratory Failure: Patient's respiratory failure is most likely combination of diastolic heart failure, severe COPD with associated cor pulmonale. Diastolic heart failure/atrial fibrillation: Cardiology currently following with control blood pressure as well as cardiac rate. Severe COPD: Patient currently on BiPAP but ABGs have overcorrected at this time well decrease her BiPAP support trying to maintain her PaCO2 in the mid 70s to low 80s. Also initiate IV steroids at this time and continue her current nebulizer support. Cor pulmonale: Agree with diuresis but we'll have to monitor for preload dependent. Oxygen support: Oxygen support will help with cor pulmonale, COPD as well as diastolic heart failure Infection: Agree that most COPD exacerbations are associated with infection but at this time she has been treated with antibiotics and appropriate calcitonin it is undetectable. I agree with monitoring in no initiation of antibiotics at this time. #2 Anticoagulation: At this time I'll continue anticoagulation platelets are still 64,000 would continue to monitor. I will leave this to the primary team but would continually subcutaneous prophylaxis at this time.
[2016-09-27] MEDS: METHYLPREDNISOLONE IV 40 MG in SYRINGE 0 ML IV SCH (21:47)
[2016-09-28] VITALS (12 sets, daily range): BP systolic 110–132; BP diastolic 61–80; PULSE 51–126; TEMP 36.5–36.8; O2SAT 92–99
[2016-09-28] MEDS: IPRATROPIUM BROMIDE NEB SOLN 0.02% 2.5 ML VIAL INH SCH ×4 (03:01→19:30)
[2016-09-28] MEDS: LEVALBUTEROL 1.25MG/0.5ML NEB INH SCH ×4 (03:01→19:30)
[2016-09-28 07:13] LABS: ARTERIAL BLD GAS O2 SATURATION 96.6 % (90-95); ARTERIAL BLOOD GAS BASE EXCESS 17.7 mEq/L (-9-1.8); ARTERIAL BLOOD GAS HCO3 45 mmol/L (19-24); ARTERIAL BLOOD GAS PO2 96 mm/Hg (80-95); ARTERIAL BLOOD GAS pH 7.42 (7.35-7.45)
[2016-09-28 07:15] LABS: ALLEN TEST POS (POS)
[2016-09-28 07:16] LABS: O2 ADMINISTRATION 2L
[2016-09-28 07:35] LABS: HEMATOCRIT 33.3 % (37-47); MEAN CORPUSCULAR HEMOGLOBIN 27.3 pg (25-34); MEAN CORPUSCULAR HGB CONC 29.7 g/dl (32-36); RED BLOOD COUNT 3.62 M/uL (4.2-5.4); WHITE BLOOD COUNT 4.12 K/uL (4.8-10.8)
[2016-09-28 07:44] LABS: PLATELET COUNT 64 K/uL (130-400); PLT ESTIMATE DECREASED
[2016-09-28] MEDS: METOPROLOL TARTRATE 25 MG TAB PO SCH ×2 (07:51→20:08)
[2016-09-28] MEDS: METHYLPREDNISOLONE IV 40 MG in SYRINGE 0 ML IV SCH ×4 (07:51→20:08)
[2016-09-28] MEDS: MULTIVITAMIN TAB PO SCH (07:51)
[2016-09-28 08:23] LABS: BUN/CREATININE RATIO 28.4 (10-20); CALCIUM 8.1 mg/dl (8.5-10.1); CREATININE 0.56 mg/dl (0.60-1.20); POTASSIUM 4.5 mmol/L (3.5-5.1)
[2016-09-28] MEDS ORDERED: HEPARIN SOD 5000 UNIT/0.5 ML CARP SQ SCH (09:00)
[2016-09-28] MEDS: HEPARIN SOD 5000 UNIT/0.5 ML CARP SQ SCH ×2 (12:59→22:06)
[2016-09-28] MEDS: DIGOXIN 0.125 MG TAB PO SCH (15:14)
[2016-09-28] MEDS: METOPROLOL TARTRATE 1 MG/ML VIAL IV PRN (17:40)
--- NOTE | 2016-09-28 20:47 | Progress Note ---
Medicine Progress Note Date & Time of Visit: Sep 28, 2016 at 20:30. Subjective Patient seen and examined. Still easily becomes dyspneic. Objective Last 8 Hrs Date Time Temp Pulse Resp B/P Pulse Ox O2 Delivery O2 Flow Rate FiO2 09/28/16 17:40 133 09/28/16 16:00 Nasal Cannula 2.0 09/28/16 15:39 36.5 126 16 129/80 96 Nasal Cannula 2.0 09/28/16 15:14 116 09/28/16 14:06 77 16 96 Nasal Cannula 2.0 Physical Exam: General-awake; alert; NAD Eyes-EOMI; no scleral icterus Neck-no stridor; trachea midline Lungs-faint bibasilar crackles Heart-tachycardic; irregularly irregular Abdomen-soft; NTND; NBS Extremities-no c/c/e; no deformity Neuro-no gross focal deficit Laboratory Results: Last 24 Hours Test 09/28/16 06:50 09/28/16 06:56 White Blood Count 4.12 K/uL Red Blood Count 3.62 M/uL Hemoglobin 9.9 g/dL Hematocrit 33.3 % Mean Corpuscular Volume 92.0 fL Mean Corpuscular Hemoglobin 27.3 pg Mean Corpuscular Hemoglobin Concent 29.7 g/dl RDW Standard Deviation 54.5 fL RDW Coefficient of Variation 16.3 % Platelet Count 64 K/uL Platelet Estimate DECREASED Sodium Level 144 mmol/L Potassium Level 4.5 mmol/L Chloride Level 97 mmol/L Carbon Dioxide Level 41 mmol/L Anion Gap 6.0 mmol/L Blood Urea Nitrogen 16 mg/dl Creatinine 0.56 mg/dl Est Creatinine Clear Calc Drug Dose 57.3 ml/min Estimated GFR () 97.2 Estimated GFR (Non- 83.8 BUN/Creatinine Ratio 28.4 Random Glucose 151 mg/dl Calcium Level 8.1 mg/dl Arterial Blood pH 7.42 Arterial Blood Partial Pressure CO2 71 mmHg Arterial Blood Partial Pressure O2 96 mm/Hg Arterial Blood HCO3 45 mmol/L Arterial Blood Oxygen Saturation 96.6 % Arterial Blood Base Excess 17.7 mEq/L Arterial Blood Gas Delivery 2L [place] Test POS Assessment & Plan NEW ONSET ATRIAL FIBRILLATION WITH RVR -Cardiology consulted -metoprolol increased to 25mg BID -continue IV metoprolol PRN -continue digoxin -continue aspirin NONISCHEMIC CARDIOMYOPATHY -Cardiology consulted -continue aspirin -Metoprolol increased to 25mg BID CHRONIC RESPIRATORY FAILURE/ SEVERE COPD -maintaining saturation on chronic 2 liters NC -Pulmonary consulted -nocturnal pulse pending to determine if patient qualifies for outpatient BiPAP -wean methylprednisolone -continue nebulizers THROMBOCYTOPENIA -unclear etiology -platelets low on admission, downtrended and appear to have stabilized -no obvious offending medications -do not believe this is related to heparin, but if continue to downtrend will hold heparin and check HIT ANEMIA -previous Hgb appear to be around 11 (in 2013 and 2014) -Hgb stable ~9-10 -no active bleeding ENCEPHALOPATHY -likely related to underlying respiratory issues -resolved CAD -prior cath 2007 showed diffuse mild disease and 50% RCA lesion -continue aspirin, metoprolol TOBACCO ABUSE -counseled on smoking cessation DVT PROPHYLAXIS -heparin sq CODE STATUS DNR Possible discharge home with home health when medically stable. Consultants: Cardiology Pulmonary Procedures: CT head 1. No acute intracranial findings. 2. Study mildly compromised by motion artifact. 3. Moderate small vessel disease. TTE * Atrial fibrillation with rapid ventricular rate was present at the time of the echocardiogram. * The left ventricular ejection fraction is grossly normal. * The right ventricle is moderately dilated. * The right ventricular systolic function is moderately reduced. * Severe biatrial enlargement is present. * There is moderate tricuspid regurgitation. * There is mild mitral regurgitation. * Moderate to severe pulmonary hypertension is present. * The PA systolic pressure is calculated to be 63 mm Hg. Current Inpatient Medications: Current Inpatient Medications Medications (Trade) Dose Ordered Sig/Jesús Route Start Time Stop Time Status Last Admin Dose Admin Acetaminophen (Tylenol Tab) 650 mg Q4H PRN PO 09/24/16 16:15 10/24/16 16:14 Ondansetron HCl (Zofran Inj) 4 mg Q6H PRN IV 09/24/16 16:15 10/24/16 16:14 Aspirin (Ecotrin Tab) 81 mg DAILY PO 09/25/16 09:00 10/25/16 08:59 Future Hold 09/26/16 07:53 81 MG Multivitamins (Multivitamin Tab) 1 tab DAILY PO 09/25/16 09:00 10/25/16 08:59 09/28/16 07:51 1 TAB Metoprolol Tartrate (Lopressor Iv) 5 mg Q4 PRN IV 09/25/16 20:00 10/25/16 19:59 09/28/16 17:40 5 MG Ipratropium [place] (Atrovent 0.02% 0.5MG/2.5ML Neb) 0.5 mg Q6R INH 09/26/16 03:00 10/26/16 02:59 09/28/16 14:06 0.5 MG Levalbuterol (Xopenex 1.25MG/ 0.5ML Neb) 1.25 mg Q6R INH 09/26/16 03:00 10/26/16 02:59 09/28/16 14:06 1.25 MG Ipratropium [place] (Atrovent 0.02% 0.5MG/2.5ML Neb) 0.5 mg Q4H PRN INH 09/26/16 01:00 10/26/16 00:59 Levalbuterol (Xopenex 1.25MG/ 0.5ML Neb) 1.25 mg Q4H PRN INH 09/26/16 01:00 10/26/16 00:59 Digoxin (Lanoxin Tab) 0.125 mg DAILY@16 PO 09/26/16 16:00 10/26/16 15:59 09/28/16 15:14 0.125 MG Metoprolol Tartrate 25 mg 25 mg BID PO 09/27/16 21:00 10/27/16 20:59 09/28/16 20:08 25 MG Methylprednisolone Sodium Succinate/ Syringe (Solu-Medrol IV/ Syringe) 0.64 ml @ 1.5 mls/min QID IV 09/27/16 21:00 10/27/16 20:59 09/28/16 20:08 1.5 MLS/MIN Heparin Sodium (Porcine) (Heparin Sq 5000 Unit/0.5ml) 5,000 unit Q8 SQ 09/28/16 14:00 10/28/16 13:59 09/28/16 12:59 5,000 UNIT
[2016-09-29] VITALS (10 sets, daily range): BP systolic 103–117; BP diastolic 57–95; PULSE 66–111; TEMP 36.4–36.9; O2SAT 94–100
[2016-09-29] MEDS: IPRATROPIUM BROMIDE NEB SOLN 0.02% 2.5 ML VIAL INH SCH ×4 (03:00→20:05)
[2016-09-29] MEDS: LEVALBUTEROL 1.25MG/0.5ML NEB INH SCH ×4 (03:00→20:05)
[2016-09-29] MEDS: HEPARIN SOD 5000 UNIT/0.5 ML CARP SQ SCH ×3 (05:55→21:47)
[2016-09-29 06:43] LABS: MEAN CELL VOLUME 91.2 fL (80-100); MEAN CORPUSCULAR HEMOGLOBIN 27.4 pg (25-34); WHITE BLOOD COUNT 6.03 K/uL (4.8-10.8)
[2016-09-29 07:10] LABS: PLATELET COUNT 63 K/uL (130-400); PLT ESTIMATE DECREASED
[2016-09-29 07:23] LABS: BUN/CREATININE RATIO 35.4 (10-20); CALCIUM 8.3 mg/dl (8.5-10.1); CREATININE 0.46 mg/dl (0.60-1.20); POTASSIUM 5.2 mmol/L (3.5-5.1)
--- NOTE | 2016-09-29 08:44 | Cardiology Follow-Up ---
Subjective General Date of Service: Sep 29, 2016. Chief Complaint: follow up atrial fibrilalation Pt evaluation today including: conversation w/ patient, physical exam, chart review, lab review, review of studies, review of inpatient medication list History of Present Illness The patient is a 86 year old female seen in follow-up. Patient more alert today. Report intermittent breathlessness. Denies chest discomfort, palpitations, lightheadedness, dizziness. Nonproductive cough unchanged. No active wheeze. Denies orthopnea or paroxysmal nocturnal dyspnea. Atrial fibrillation with RVR on monitor. Anticoagulation on hold due to thrombocytopenia. Platelets stable today. Allergies Coded Allergies: Sulfa Antibiotics (Verified Allergy, Intermediate, ?, 09/24/16) Penicillins (Unverified Allergy, Mild, 09/24/16) Social History Smoking Status: Current Every Day Smoker Hx Tobacco Use In Past Year?: Yes Hx Alcohol Use - Type And Amou: No Hx Substance Use - Type And Am: No Problem List Medical Problems: (1) Atrial fibrillation with RVR Status: Acute (2) CHF (congestive heart failure) Status: Acute (3) Generalized weakness Status: Acute Physical Exam Vital Signs Last Vital Signs Documentation Date Time Temp Pulse Resp B/P Pulse Ox O2 Delivery O2 Flow Rate FiO2 09/29/16 08:00 36.7 96 18 116/72 98 Nasal Cannula 3.0 09/28/16 21:47 30 Physical Exam Constitutional: Level of Distress: NAD, chronically ill Head: normocephalic Neck: supple Lungs: Auscultation: no wheezing, pertinent finding (decreased BS at bases ) Cardiovascular: Heart Auscultation: tachycardia, II/ PATITO, irregular rate rhythm Peripheral Pulses: Radial Pulse: normal on the left, normal on the right Abdomen: Bowel Sounds: normal Inspection & Palpation: soft, non-distended Musculoskeletal: normal Extremities: no cyanosis, no edema Neurologic: Gait & Station: pertinent finding (No focal motor deficit) Cranial Nerves: grossly intact Assessment and Plan Assessment and Plan IMP: 1. Paroxysmal atrial fibrillation with rapid ventricular response 2. Left ventricular dysfunction with pulmonary hypertension - most likely secondary to underlying COPD 3. Acute exacerbation of COPD with hypercapnic respiratory failure 4. Thrombocytopenia - Anticoagulation on hold - Platelets stable 5. Normocytic Anemia - hgb stable Plan: Increase metoprolol to 25 mg TID. Hold anticoagulation at this time. Continue low-dose aspirin. Repeat CBC in AM. Continue telemetry monitoring at this time. COPD management as per primary service. I will continue to follow. Laboratory Results Last 24 Hours Test 09/29/16 06:08 White Blood Count 6.03 K/uL Red Blood Count 3.40 M/uL Hemoglobin 9.3 g/dL Hematocrit 31.0 % Mean Corpuscular Volume 91.2 fL Mean Corpuscular Hemoglobin 27.4 pg Mean Corpuscular Hemoglobin Concent 30.0 g/dl RDW Standard Deviation 54.2 fL RDW Coefficient of Variation 16.3 % Platelet Count 63 K/uL Platelet Estimate DECREASED Sodium Level 140 mmol/L Potassium Level 5.2 mmol/L Chloride Level 95 mmol/L Carbon Dioxide Level 40 mmol/L Anion Gap 5.0 mmol/L Blood Urea Nitrogen 16 mg/dl Creatinine 0.46 mg/dl Est Creatinine Clear Calc Drug Dose 68.0 ml/min Estimated GFR () 103.7 Estimated GFR (Non- 89.4 BUN/Creatinine Ratio 35.4 Random Glucose 131 mg/dl Calcium Level 8.3 mg/dl
[2016-09-29] MEDS: METHYLPREDNISOLONE IV 40 MG in SYRINGE 0 ML IV SCH ×2 (08:54→09:51)
[2016-09-29] MEDS: MULTIVITAMIN TAB PO SCH (08:54)
[2016-09-29] MEDS: METOPROLOL TARTRATE 1 MG/ML VIAL IV PRN (09:50)
[2016-09-29] MEDS: ASPIRIN 81 MG ECTAB PO SCH (10:53)
[2016-09-29] MEDS: METOPROLOL TARTRATE 25 MG TAB PO SCH ×3 (10:53→21:46)
[2016-09-29] MEDS: DIGOXIN 0.125 MG TAB PO SCH (16:42)
--- NOTE | 2016-09-29 17:39 | Pulmonology Progress Note ---
Pulmonary Progress Note Date of Service Sep 29, 2016. Attending Narciso Carranza Subjective Patient note still dyspneic with notable dyspnea on exertion but progressing pulmonary status. Objective Patient sitting up in chair eating today on nasal cannula no signs of accessory muscle use and/or increased work of breathing at this time. Vital signs: Reviewed currently still on 2 L nasal cannula Respiratory: Decreased breath sounds bilaterally but increasing as compared to previous exam Cardiac: S1-S2 irregular rate and rhythm Abdomen: Positive bowel sounds soft nontender Nocturnal desaturation study: Longest. A continuous desaturation less than 89% was 3 minutes ABG 7.42/71/96/45--2 L nasal cannula Carbon dioxide 40: Estimated PaCO2 68 Assessment & Plan 86-year-old female admitted for acute on chronic respiratory failure: #1 COPD/Cor Pulmonale: Severe COPD currently responded to BiPAP steroids and medical regimen. Steroids: Patient is improving and switch her from IV steroids over to by mouth prednisone 60 mg per day BiPAP: Cessation of the patient's most responsive to noninvasive ventilation have daytime hypercapnia with PaCO2 greater than 50 to, oxygen desaturations less than or equal to 88% for greater than 5 minutes during nocturnal desaturation examination despite O2 supplementation and those with acute COPD exacerbation. At this time are patient meets 2 with a 3 criteria. Suggest we monitor over the next 24 hours and determine if chronic BiPAP therapy would be beneficial. #2 Atrial Fibrillation: Patient continues to be in atrial fibrillation but as she has advanced age and thrombocytopenia will defer to cardiology for stroke risk factors and benefit of initiating anticoagulation. Data Medications: Current Inpatient Medications Medications (Trade) Dose Ordered Sig/Jesús Route Start Time Stop Time Status Last Admin Dose Admin Acetaminophen (Tylenol Tab) 650 mg Q4H PRN PO 09/24/16 16:15 10/24/16 16:14 Ondansetron HCl (Zofran Inj) 4 mg Q6H PRN IV 09/24/16 16:15 10/24/16 16:14 Aspirin (Ecotrin Tab) 81 mg DAILY PO 09/25/16 09:00 10/25/16 08:59 Future hold 09/29/16 10:53 81 MG Multivitamins (Multivitamin Tab) 1 tab DAILY PO 09/25/16 09:00 10/25/16 08:59 09/29/16 08:54 1 TAB Metoprolol Tartrate (Lopressor Iv) 5 mg Q4 PRN IV 09/25/16 20:00 10/25/16 19:59 09/29/16 09:50 5 MG Ipratropium [place] (Atrovent 0.02% 0.5MG/2.5ML Neb) 0.5 mg Q6R INH 09/26/16 03:00 10/26/16 02:59 09/29/16 15:13 0.5 MG Levalbuterol (Xopenex 1.25MG/ 0.5ML Neb) 1.25 mg Q6R INH 09/26/16 03:00 10/26/16 02:59 09/29/16 15:13 1.25 MG Ipratropium [place] (Atrovent 0.02% 0.5MG/2.5ML Neb) 0.5 mg Q4H PRN INH 09/26/16 01:00 10/26/16 00:59 Levalbuterol (Xopenex 1.25MG/ 0.5ML Neb) 1.25 mg Q4H PRN INH 09/26/16 01:00 10/26/16 00:59 Digoxin (Lanoxin Tab) 0.125 mg DAILY@16 PO 09/26/16 16:00 10/26/16 15:59 09/29/16 16:42 0.125 MG Heparin Sodium (Porcine) 5000 unit 5,000 unit Q8 SQ 09/28/16 14:00 10/28/16 13:59 09/29/16 14:25 5,000 UNIT Methylprednisolone Sodium Succinate/ Syringe (Solu-Medrol IV/ Syringe) 0.64 ml @ 1.5 mls/min BID IV 09/29/16 09:00 10/29/16 08:59 09/29/16 09:51 1.5 MLS/MIN Metoprolol Tartrate (Lopressor Tab) 25 mg TID PO 09/29/16 10:00 10/29/16 09:59 09/29/16 14:25 25 MG I & O: 24-Hour Column 09/29/16 07:59 Intake Total 855 ml Output Total 650 ml Balance 205 ml Vital Signs: Date Time Temp Pulse Resp B/P Pulse Ox O2 Delivery O2 Flow Rate FiO2 09/29/16 16:42 107 09/29/16 15:44 36.8 101 18 112/95 97 Nasal Cannula 2.0 09/29/16 15:13 111 16 97 Nasal Cannula 3.0 09/29/16 12:00 Nasal Cannula 3.0 09/29/16 12:00 36.7 109 20 107/57 100 Nasal Cannula 2.0 09/29/16 09:50 135 100/64 09/29/16 08:00 36.7 96 18 116/72 98 Nasal Cannula 3.0 09/29/16 08:00 Nasal Cannula 3.0 09/29/16 07:02 68 16 99 Nasal Cannula 3.0 09/29/16 04:00 Nasal Cannula 2.0 CPAP 09/29/16 03:56 36.4 77 22 117/72 97 Nasal Cannula 3.0 09/29/16 00:01 Nasal Cannula 2.0 CPAP 09/28/16 23:00 36.6 97 23 120/65 97 Nasal Cannula 2.0 09/28/16 21:47 104 15 93 BiPAP/CPAP 30 09/28/16 20:00 Nasal Cannula 2.0 09/28/16 19:30 104 93 30 09/28/16 19:11 36.6 115 20 111/64 95 Nasal Cannula 2.0 09/28/16 17:40 133 Laboratory Results: Last 24 Hours Test 09/29/16 06:08 White Blood Count 6.03 K/uL Red Blood Count 3.40 M/uL Hemoglobin 9.3 g/dL Hematocrit 31.0 % Mean Corpuscular Volume 91.2 fL Mean Corpuscular Hemoglobin 27.4 pg Mean Corpuscular Hemoglobin Concent 30.0 g/dl RDW Standard Deviation 54.2 fL RDW Coefficient of Variation 16.3 % Platelet Count 63 K/uL Platelet Estimate DECREASED Sodium Level 140 mmol/L Potassium Level 5.2 mmol/L Chloride Level 95 mmol/L Carbon Dioxide Level 40 mmol/L Anion Gap 5.0 mmol/L Blood Urea Nitrogen 16 mg/dl Creatinine 0.46 mg/dl Est Creatinine Clear Calc Drug Dose 68.0 ml/min Estimated GFR () 103.7 Estimated GFR (Non- 89.4 BUN/Creatinine Ratio 35.4 Random Glucose 131 mg/dl Calcium Level 8.3 mg/dl
--- NOTE | 2016-09-29 19:05 | Progress Note ---
Medicine Progress Note Date & Time of Visit: Sep 29, 2016 at 19:02. Subjective Patient seen and examined. Denies complaints at this time. Objective Last 8 Hrs Date Time Temp Pulse Resp B/P Pulse Ox O2 Delivery O2 Flow Rate FiO2 09/29/16 16:42 107 09/29/16 16:00 Nasal Cannula 3.0 09/29/16 15:44 36.8 101 18 112/95 97 Nasal Cannula 2.0 09/29/16 15:13 111 16 97 Nasal Cannula 3.0 09/29/16 12:00 Nasal Cannula 3.0 09/29/16 12:00 36.7 109 20 107/57 100 Nasal Cannula 2.0 Physical Exam: General-awake; alert; NAD Eyes-EOMI; no scleral icterus Neck-no stridor; trachea midline Lungs-faint bibasilar crackles Heart-tachycardic; irregularly irregular Abdomen-soft; NTND; NBS Extremities-no c/c/e; no deformity Neuro-no gross focal deficit Laboratory Results: Last 24 Hours Test 09/29/16 06:08 White Blood Count 6.03 K/uL Red Blood Count 3.40 M/uL Hemoglobin 9.3 g/dL Hematocrit 31.0 % Mean Corpuscular Volume 91.2 fL Mean Corpuscular Hemoglobin 27.4 pg Mean Corpuscular Hemoglobin Concent 30.0 g/dl RDW Standard Deviation 54.2 fL RDW Coefficient of Variation 16.3 % Platelet Count 63 K/uL Platelet Estimate DECREASED Sodium Level 140 mmol/L Potassium Level 5.2 mmol/L Chloride Level 95 mmol/L Carbon Dioxide Level 40 mmol/L Anion Gap 5.0 mmol/L Blood Urea Nitrogen 16 mg/dl Creatinine 0.46 mg/dl Est Creatinine Clear Calc Drug Dose 68.0 ml/min Estimated GFR () 103.7 Estimated GFR (Non- 89.4 BUN/Creatinine Ratio 35.4 Random Glucose 131 mg/dl Calcium Level 8.3 mg/dl Assessment & Plan NEW ONSET ATRIAL FIBRILLATION WITH RVR -Cardiology consulted -metoprolol increased to 25mg TID -continue IV metoprolol PRN -continue digoxin -continue aspirin -anticoagulation on hold per Cardiology NONISCHEMIC CARDIOMYOPATHY -Cardiology consulted -continue aspirin -Metoprolol increased to 25mg TID as above CHRONIC RESPIRATORY FAILURE/ SEVERE COPD -maintaining saturation on chronic 2 liters NC -Pulmonary consulted -nocturnal pulse completed -change methylprednisolone to prednisone -continue nebulizers THROMBOCYTOPENIA -unclear etiology -platelets low on admission, downtrended and appear to have stabilized -no obvious offending medications -do not believe this is related to heparin, but if continue to downtrend will hold heparin and check 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 Consultants: Cardiology Pulmonary Procedures: CT head 1. No acute intracranial findings. 2. Study mildly compromised by motion artifact. 3. Moderate small vessel disease. TTE * Atrial fibrillation with rapid ventricular rate was present at the time of the echocardiogram. * The left ventricular ejection fraction is grossly normal. * The right ventricle is moderately dilated. * The right ventricular systolic function is moderately reduced. * Severe biatrial enlargement is present. * There is moderate tricuspid regurgitation. * There is mild mitral regurgitation. * Moderate to severe pulmonary hypertension is present. * The PA systolic pressure is calculated to be 63 mm Hg. Current Inpatient Medications: Current Inpatient Medications Medications (Trade) Dose Ordered Sig/Jesús Route Start Time Stop Time Status Last Admin Dose Admin Acetaminophen (Tylenol Tab) 650 mg Q4H PRN PO 09/24/16 16:15 10/24/16 16:14 Ondansetron HCl (Zofran Inj) 4 mg Q6H PRN IV 09/24/16 16:15 10/24/16 16:14 Aspirin (Ecotrin Tab) 81 mg DAILY PO 09/25/16 09:00 10/25/16 08:59 Future hold 09/29/16 10:53 81 MG Multivitamins (Multivitamin Tab) 1 tab DAILY PO 09/25/16 09:00 10/25/16 08:59 09/29/16 08:54 1 TAB Metoprolol Tartrate (Lopressor Iv) 5 mg Q4 PRN IV 09/25/16 20:00 10/25/16 19:59 09/29/16 09:50 5 MG Ipratropium [place] (Atrovent 0.02% 0.5MG/2.5ML Neb) 0.5 mg Q6R INH 09/26/16 03:00 10/26/16 02:59 09/29/16 15:13 0.5 MG Levalbuterol (Xopenex 1.25MG/ 0.5ML Neb) 1.25 mg Q6R INH 09/26/16 03:00 10/26/16 02:59 09/29/16 15:13 1.25 MG Ipratropium [place] (Atrovent 0.02% 0.5MG/2.5ML Neb) 0.5 mg Q4H PRN INH 09/26/16 01:00 10/26/16 00:59 Levalbuterol (Xopenex 1.25MG/ 0.5ML Neb) 1.25 mg Q4H PRN INH 09/26/16 01:00 10/26/16 00:59 Digoxin (Lanoxin Tab) 0.125 mg DAILY@16 PO 09/26/16 16:00 10/26/16 15:59 09/29/16 16:42 0.125 MG Heparin Sodium (Porcine) 5000 unit 5,000 unit Q8 SQ 09/28/16 14:00 10/28/16 13:59 09/29/16 14:25 5,000 UNIT Methylprednisolone Sodium Succinate/ Syringe (Solu-Medrol IV/ Syringe) 0.64 ml @ 1.5 mls/min BID IV 09/29/16 09:00 09/30/16 01:00 09/29/16 09:51 1.5 MLS/MIN Metoprolol Tartrate (Lopressor Tab) 25 mg TID PO 09/29/16 10:00 10/29/16 09:59 09/29/16 14:25 25 MG Prednisone (PredniSONE TAB) 60 mg DAILY@0800 PO 09/30/16 08:00 10/30/16 07:59
[2016-09-29] MEDS ORDERED: SODIUM CHLORIDE 0.65% NA SOLN 45 ML (OCEAN) ONE (21:48)
[2016-09-30] VITALS (14 sets, daily range): BP systolic 98–123; BP diastolic 57–78; PULSE 52–142; TEMP 36.5–36.9; O2SAT 91–99
[2016-09-30] MEDS: LEVALBUTEROL 1.25MG/0.5ML NEB INH SCH ×4 (01:20→20:55)
[2016-09-30] MEDS: IPRATROPIUM BROMIDE NEB SOLN 0.02% 2.5 ML VIAL INH SCH ×4 (01:20→20:55)
[2016-09-30] MEDS: HEPARIN SOD 5000 UNIT/0.5 ML CARP SQ SCH ×3 (05:36→21:24)
[2016-09-30 07:28] LABS: BUN/CREATININE RATIO 41.3 (10-20); CALCIUM 8.5 mg/dl (8.5-10.1); CREATININE 0.52 mg/dl (0.60-1.20)
[2016-09-30 07:41] LABS: HEMATOCRIT 32.1 % (37-47); MEAN CELL VOLUME 93.6 fL (80-100); MEAN CORPUSCULAR HEMOGLOBIN 27.4 pg (25-34); MEAN CORPUSCULAR HGB CONC 29.3 g/dl (32-36); MEAN PLATELET VOLUME 12.4 fL (7.4-10.4); PLATELET COUNT 60 K/uL (130-400); PLT ESTIMATE DECREASED; RED BLOOD COUNT 3.43 M/uL (4.2-5.4); WHITE BLOOD COUNT 8.91 K/uL (4.8-10.8)
[2016-09-30] MEDS: METOPROLOL TARTRATE 25 MG TAB PO SCH ×2 (07:48→14:23)
[2016-09-30] MEDS: MULTIVITAMIN TAB PO SCH (07:48)
[2016-09-30] MEDS: ASPIRIN 81 MG ECTAB PO SCH (07:49)
[2016-09-30] MEDS: METOPROLOL TARTRATE 1 MG/ML VIAL IV PRN ×2 (08:12→12:36)
--- NOTE | 2016-09-30 15:48 | Cardiology Follow-Up ---
Subjective General Date of Service: Sep 30, 2016. Chief Complaint: follow up atrial fibrilalation Pt evaluation today including: conversation w/ patient, physical exam, chart review, lab review, review of studies, conversation w/ automotive service consultant, review of inpatient medication list History of Present Illness The patient is a 86 year old female seen in follow-up. Patient SOB today. +BOWLING with minimal movement. Denies chest discomfort, palpitations, lightheadedness, dizziness. Nonproductive cough unchanged. No active wheeze. Denies orthopnea or paroxysmal nocturnal dyspnea. Atrial fibrillation with RVR on monitor. Received two doses of IV lopressor today. Anticoagulation on hold due to thrombocytopenia. Platelets stable today. Allergies Coded Allergies: Sulfa Antibiotics (Verified Allergy, Intermediate, ?, 09/24/16) Penicillins (Unverified Allergy, Mild, 09/24/16) Social History Smoking Status: Current Every Day Smoker Hx Tobacco Use In Past Year?: Yes Hx Alcohol Use - Type And Amou: No Hx Substance Use - Type And Am: No Problem List Medical Problems: (1) Atrial fibrillation with RVR Status: Acute (2) CHF (congestive heart failure) Status: Acute (3) Generalized weakness Status: Acute Review of Systems Respiratory: + cough, + dyspnea on exertion, + shortness of breath, No dyspnea at rest, No hemoptysis, No sputum, No wheezing Cardiac: No PND, No chest pain, No claudication, No edema, No orthopnea, No palpitations Physical Exam Vital Signs Last Vital Signs Documentation Date Time Temp Pulse Resp B/P Pulse Ox O2 Delivery O2 Flow Rate FiO2 09/30/16 14:35 78 14 98 Nasal Cannula 3.0 09/30/16 12:36 115/72 09/30/16 04:22 36.5 09/30/16 01:22 30 Physical Exam Constitutional: Level of Distress: NAD, chronically ill Head: normocephalic Neck: supple Lungs: Auscultation: no wheezing, pertinent finding (decreased BS at bases ) Cardiovascular: Heart Auscultation: tachycardia, II/ PATITO, irregular rate rhythm Peripheral Pulses: Radial Pulse: normal on the left, normal on the right Abdomen: Bowel Sounds: normal Inspection & Palpation: soft, non-distended Musculoskeletal: normal Extremities: no cyanosis, no edema Neurologic: Gait & Station: pertinent finding (No focal motor deficit) Cranial Nerves: grossly intact Assessment and Plan Assessment and Plan IMP: 1. Paroxysmal atrial fibrillation with rapid ventricular response 2. Preserved LV systolic function 3. Cor pulmonale / severe COPD with hypercapnic respiratory failure 4. Thrombocytopenia - Platelets count stable today 5. Normocytic Anemia - hgb stable Plan: Reduce beta zachary to outpatient dose (12.5mg BID) with transition to calcium channel zachary in an attempt to improve pulmonary status . Repeat CBC in AM. Hold anticoagulation at this time as risk (advanced age, anemia, thrombocytopenia, cachexia, fall risk) currently outweighs benefit. COPD management as per pulmonary medicine. I will continue to follow. Laboratory Results Last 24 Hours Test 09/30/16 06:35 White Blood Count 8.91 K/uL Red Blood Count 3.43 M/uL Hemoglobin 9.4 g/dL Hematocrit 32.1 % Mean Corpuscular Volume 93.6 fL Mean Corpuscular Hemoglobin 27.4 pg Mean Corpuscular Hemoglobin Concent 29.3 g/dl RDW Standard Deviation 56.1 fL RDW Coefficient of Variation 16.4 % Platelet Count 60 K/uL Mean Platelet Volume 12.4 fL Platelet Estimate DECREASED Sodium Level 142 mmol/L Potassium Level 5.0 mmol/L Chloride Level 96 mmol/L Carbon Dioxide Level 43 mmol/L Anion Gap 3.0 mmol/L Blood Urea Nitrogen 21 mg/dl Creatinine 0.52 mg/dl Est Creatinine Clear Calc Drug Dose 61.4 ml/min Estimated GFR () 99.6 Estimated GFR (Non- 85.9 BUN/Creatinine Ratio 41.3 Random Glucose 88 mg/dl Calcium Level 8.5 mg/dl Magnesium Level 2.0 mg/dl
[2016-09-30] MEDS: DIGOXIN 0.125 MG TAB PO SCH (16:02)
[2016-09-30] MEDS ORDERED: DILTIAZEM HCL 60 MG TAB PO ONE (16:30)
--- NOTE | 2016-09-30 19:19 | Progress Note ---
Medicine Progress Note Date & Time of Visit: Sep 30, 2016 at 19:15. Subjective Patient seen and examined. Is without complaints. Objective Last 8 Hrs Date Time Temp Pulse Resp B/P Pulse Ox O2 Delivery O2 Flow Rate FiO2 09/30/16 16:14 99 Nasal Cannula 3.0 Humidified Oxygen 09/30/16 16:09 36.5 99 16 123/68 99 Nasal Cannula 3.0 Humidified Oxygen 09/30/16 16:02 100 09/30/16 15:58 36.9 94 22 120/73 98 Nasal Cannula 3.0 09/30/16 15:45 98 Nasal Cannula 3.0 09/30/16 14:35 78 14 98 Nasal Cannula 3.0 09/30/16 12:36 132 115/72 09/30/16 12:00 Nasal Cannula 3.0 Physical Exam: General-awake; alert; NAD Eyes-EOMI; no scleral icterus Neck-no stridor; trachea midline Lungs-faint bibasilar crackles Heart-tachycardic; irregularly irregular Abdomen-soft; NTND; NBS Extremities-no c/c/e; no deformity Neuro-no gross focal deficit Laboratory Results: Last 24 Hours Test 09/30/16 06:35 White Blood Count 8.91 K/uL Red Blood Count 3.43 M/uL Hemoglobin 9.4 g/dL Hematocrit 32.1 % Mean Corpuscular Volume 93.6 fL Mean Corpuscular Hemoglobin 27.4 pg Mean Corpuscular Hemoglobin Concent 29.3 g/dl RDW Standard Deviation 56.1 fL RDW Coefficient of Variation 16.4 % Platelet Count 60 K/uL Mean Platelet Volume 12.4 fL Platelet Estimate DECREASED Sodium Level 142 mmol/L Potassium Level 5.0 mmol/L Chloride Level 96 mmol/L Carbon Dioxide Level 43 mmol/L Anion Gap 3.0 mmol/L Blood Urea Nitrogen 21 mg/dl Creatinine 0.52 mg/dl Est Creatinine Clear Calc Drug Dose 61.4 ml/min Estimated GFR () 99.6 Estimated GFR (Non- 85.9 BUN/Creatinine Ratio 41.3 Random Glucose 88 mg/dl Calcium Level 8.5 mg/dl Magnesium Level 2.0 mg/dl Assessment & Plan NEW ONSET ATRIAL FIBRILLATION WITH RVR -Cardiology consulted -metoprolol decreased to 12.5mg BID -diltiazem started -continue IV metoprolol PRN -continue digoxin -continue aspirin -anticoagulation not recommended per Cardiology as risks outweigh benefits NONISCHEMIC CARDIOMYOPATHY -Cardiology consulted -continue aspirin -Metoprolol decreased to 12.5mg BID as above CHRONIC RESPIRATORY FAILURE/ SEVERE COPD -maintaining saturation on chronic 2 liters NC -Pulmonary consulted -nocturnal pulse completed -change methylprednisolone to prednisone -continue nebulizers -patient does not qualify for home BiPAP at this time THROMBOCYTOPENIA -unclear etiology -platelets low on admission, downtrended and appear to have stabilized -no obvious offending medications -do not believe this is related to heparin, but if continue to downtrend will hold heparin and check 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 Consultants: Cardiology Pulmonary Procedures: CT head 1. No acute intracranial findings. 2. Study mildly compromised by motion artifact. 3. Moderate small vessel disease. TTE * Atrial fibrillation with rapid ventricular rate was present at the time of the echocardiogram. * The left ventricular ejection fraction is grossly normal. * The right ventricle is moderately dilated. * The right ventricular systolic function is moderately reduced. * Severe biatrial enlargement is present. * There is moderate tricuspid regurgitation. * There is mild mitral regurgitation. * Moderate to severe pulmonary hypertension is present. * The PA systolic pressure is calculated to be 63 mm Hg. Current Inpatient Medications: Current Inpatient Medications Medications (Trade) Dose Ordered Sig/Jesús Route Start Time Stop Time Status Last Admin Dose Admin Acetaminophen (Tylenol Tab) 650 mg Q4H PRN PO 09/24/16 16:15 10/24/16 16:14 Ondansetron HCl (Zofran Inj) 4 mg Q6H PRN IV 09/24/16 16:15 10/24/16 16:14 Aspirin (Ecotrin Tab) 81 mg DAILY PO 09/25/16 09:00 10/25/16 08:59 Future hold 09/30/16 07:49 81 MG Multivitamins (Multivitamin Tab) 1 tab DAILY PO 09/25/16 09:00 10/25/16 08:59 09/30/16 07:48 1 TAB Metoprolol Tartrate (Lopressor Iv) 5 mg Q4 PRN IV 09/25/16 20:00 10/25/16 19:59 09/30/16 12:36 5 MG Ipratropium [place] (Atrovent 0.02% 0.5MG/2.5ML Neb) 0.5 mg Q6R INH 09/26/16 03:00 10/26/16 02:59 09/30/16 14:35 0.5 MG Levalbuterol (Xopenex 1.25MG/ 0.5ML Neb) 1.25 mg Q6R INH 09/26/16 03:00 10/26/16 02:59 09/30/16 14:35 1.25 MG Ipratropium [place] (Atrovent 0.02% 0.5MG/2.5ML Neb) 0.5 mg Q4H PRN INH 09/26/16 01:00 10/26/16 00:59 Levalbuterol (Xopenex 1.25MG/ 0.5ML Neb) 1.25 mg Q4H PRN INH 09/26/16 01:00 10/26/16 00:59 Digoxin (Lanoxin Tab) 0.125 mg DAILY@16 PO 09/26/16 16:00 10/26/16 15:59 09/30/16 16:02 0.125 MG Heparin Sodium (Porcine) (Heparin Sq 5000 Unit/0.5ml) 5,000 unit Q8 SQ 09/28/16 14:00 10/28/16 13:59 09/30/16 14:22 5,000 UNIT Prednisone (PredniSONE TAB) 60 mg DAILY@0800 PO 09/30/16 08:00 10/30/16 07:59 09/30/16 07:49 60 MG Diltiazem HCl (Cardizem Tab) 60 mg TID PO 09/30/16 21:00 10/30/16 20:59 Metoprolol Tartrate (Lopressor Tab) 12.5 mg BID PO 10/01/16 09:00 10/31/16 08:59
[2016-09-30] MEDS: DILTIAZEM HCL 60 MG TAB PO SCH (21:23)
[2016-10-01] VITALS (13 sets, daily range): BP systolic 94–141; BP diastolic 56–73; PULSE 54–125; TEMP 36.2–36.5; O2SAT 91–99
[2016-10-01] MEDS: LEVALBUTEROL 1.25MG/0.5ML NEB INH SCH ×4 (01:57→19:20)
[2016-10-01] MEDS: IPRATROPIUM BROMIDE NEB SOLN 0.02% 2.5 ML VIAL INH SCH ×4 (01:57→19:20)
[2016-10-01] MEDS: METOPROLOL TARTRATE 1 MG/ML VIAL IV PRN ×2 (03:44→08:37)
[2016-10-01] MEDS: HEPARIN SOD 5000 UNIT/0.5 ML CARP SQ SCH ×3 (06:18→21:08)
[2016-10-01 07:09] LABS: MEAN CORPUSCULAR HGB CONC 29.6 g/dl (32-36)
[2016-10-01 07:38] LABS: HEMATOCRIT 30.1 % (37-47); MEAN CELL VOLUME 90.9 fL (80-100); MEAN CORPUSCULAR HEMOGLOBIN 26.9 pg (25-34); RED BLOOD COUNT 3.31 M/uL (4.2-5.4); WHITE BLOOD COUNT 7.21 K/uL (4.8-10.8)
[2016-10-01 07:47] LABS: BUN/CREATININE RATIO 39.6 (10-20); CALCIUM 8.2 mg/dl (8.5-10.1); CREATININE 0.49 mg/dl (0.60-1.20); POTASSIUM 4.7 mmol/L (3.5-5.1)
[2016-10-01 08:04] LABS: PLATELET COUNT 52 K/uL (130-400); PLT ESTIMATE DECREASED
[2016-10-01] MEDS: ASPIRIN 81 MG ECTAB PO SCH (08:14)
[2016-10-01] MEDS: MULTIVITAMIN TAB PO SCH (08:14)
[2016-10-01] MEDS: DILTIAZEM HCL 60 MG TAB PO SCH ×2 (08:15→21:07)
[2016-10-01] MEDS ORDERED: METOPROLOL TARTRATE 25 MG TAB PO SCH (09:00)
--- NOTE | 2016-10-01 09:54 | Cardiology Follow-Up ---
Subjective General Date of Service: Oct 01, 2016. Chief Complaint: follow up atrial fibrilalation Pt evaluation today including: conversation w/ patient, physical exam, chart review, lab review, review of studies, review of inpatient medication list History of Present Illness The patient is a 86 year old female seen in follow-up. Heart rate improved overnight with transition to diltiazem. Platelets have trended downward. Denies chest discomfort, palpitations, lightheadedness, dizziness. Nonproductive cough unchanged. No active wheeze. Denies orthopnea or paroxysmal nocturnal dyspnea. Atrial fibrillation with CVR on monitor. Received one dose of IV lopressor earlier this AM. Allergies Coded Allergies: Sulfa Antibiotics (Verified Allergy, Intermediate, ?, 09/24/16) Penicillins (Unverified Allergy, Mild, 09/24/16) Social History Smoking Status: Current Every Day Smoker Hx Tobacco Use In Past Year?: Yes Hx Alcohol Use - Type And Amou: No Hx Substance Use - Type And Am: No Problem List Medical Problems: (1) Atrial fibrillation with RVR Status: Acute (2) CHF (congestive heart failure) Status: Acute (3) Generalized weakness Status: Acute Review of Systems Respiratory: No cough, No dyspnea at rest, No dyspnea on exertion, No hemoptysis, No shortness of breath, No wheezing Cardiac: No PND, No chest pain, No claudication, No edema, No orthopnea, No palpitations Physical Exam Vital Signs Last Vital Signs Documentation Date Time Temp Pulse Resp B/P Pulse Ox O2 Delivery O2 Flow Rate FiO2 10/01/16 08:37 138 137/72 10/01/16 08:20 36.5 18 99 Nasal Cannula 3.0 10/01/16 04:00 30 Physical Exam Constitutional: General Apperance: cachectic Level of Distress: NAD, chronically ill Head: normocephalic Neck: supple Lungs: Auscultation: no wheezing, pertinent finding (decreased BS at bases ) Cardiovascular: Heart Auscultation: II/ PATITO, irregular rate rhythm Peripheral Pulses: Radial Pulse: normal on the left, normal on the right Abdomen: Bowel Sounds: normal Inspection & Palpation: soft, non-distended Musculoskeletal: normal Extremities: no cyanosis, no edema, no clubbing, no ulcers Neurologic: Gait & Station: pertinent finding (No focal motor deficit) Cranial Nerves: grossly intact Assessment and Plan Assessment and Plan IMP: 1. Paroxysmal atrial fibrillation with controlled ventricular response 2. Preserved LV systolic function 3. Cor pulmonale / severe COPD with hypercapnic respiratory failure 4. Thrombocytopenia - Platelets trending down further today without signs of GI/ blood loss 5. Normocytic Anemia Plan: Continue reduced dose beta zachary (12.5mg BID), digoxin, and Cardizem 60 mg 3 times a day. Consider discontinuation of beta zachary pending review of telemetry over the next 24-48 hours. Repeat CBC in AM. Hold anticoagulation at this time as risk (advanced age, anemia, thrombocytopenia, cachexia, fall risk) currently outweighs benefit. COPD management as per pulmonary medicine. Laboratory Results Last 24 Hours Test 10/01/16 06:30 White Blood Count 7.21 K/uL Red Blood Count 3.31 M/uL Hemoglobin 8.9 g/dL Hematocrit 30.1 % Mean Corpuscular Volume 90.9 fL Mean Corpuscular Hemoglobin 26.9 pg Mean Corpuscular Hemoglobin Concent 29.6 g/dl RDW Standard Deviation 54.9 fL RDW Coefficient of Variation 16.6 % Platelet Count 52 K/uL Platelet Estimate DECREASED Sodium Level 142 mmol/L Potassium Level 4.7 mmol/L Chloride Level 95 mmol/L Carbon Dioxide Level 43 mmol/L Anion Gap 4.0 mmol/L Blood Urea Nitrogen 19 mg/dl Creatinine 0.49 mg/dl Est Creatinine Clear Calc Drug Dose 65.3 ml/min Estimated GFR () 101.5 Estimated GFR (Non- 87.6 BUN/Creatinine Ratio 39.6 Random Glucose 81 mg/dl Calcium Level 8.2 mg/dl Magnesium Level 2.0 mg/dl
--- NOTE | 2016-10-01 15:57 | Pulmonology Progress Note ---
Pulmonary Progress Note Date of Service Oct 01, 2016. Attending Narciso Carranza Subjective Patient feels better today continued dyspnea at rest and severe dyspnea on exertion. Objective Patient sitting up in bed but using accessory muscles during our conversation, having intermittently stop to catch her breath. Vital signs: Reviewed currently still on 2 L nasal cannula Respiratory: Decreased breath sounds bilaterally note changes over the previous 24 hours Cardiac: S1-S2 irregular rate and rhythm Abdomen: Positive bowel sounds soft nontender Nocturnal desaturation study: Longest. A continuous desaturation less than 89% was 3 minutes ABG 7.42/71/96/45--2 L nasal cannula Carbon dioxide 40: Estimated PaCO2 68 Assessment & Plan 86-year-old female admitted for acute on chronic respiratory failure: #1 COPD/Cor Pulmonale: I spoken to the patient and Dr. Renee. This time I agree with Dr. Renee in moving to hospice care would be appropriate. Pulmonary service will sign off please recontact if needed Data Medications: Current Inpatient Medications Medications (Trade) Dose Ordered Sig/Jesús Route Start Time Stop Time Status Last Admin Dose Admin Acetaminophen (Tylenol Tab) 650 mg Q4H PRN PO 09/24/16 16:15 10/24/16 16:14 Ondansetron HCl (Zofran Inj) 4 mg Q6H PRN IV 09/24/16 16:15 10/24/16 16:14 Aspirin (Ecotrin Tab) 81 mg DAILY PO 09/25/16 09:00 10/25/16 08:59 Future hold 10/01/16 08:14 81 MG Multivitamins (Multivitamin Tab) 1 tab DAILY PO 09/25/16 09:00 10/25/16 08:59 10/01/16 08:14 1 TAB Ipratropium [place] (Atrovent 0.02% 0.5MG/2.5ML Neb) 0.5 mg Q6R INH 09/26/16 03:00 10/26/16 02:59 10/01/16 14:17 0.5 MG Levalbuterol (Xopenex 1.25MG/ 0.5ML Neb) 1.25 mg Q6R INH 09/26/16 03:00 10/26/16 02:59 10/01/16 14:17 1.25 MG Ipratropium [place] (Atrovent 0.02% 0.5MG/2.5ML Neb) 0.5 mg Q4H PRN INH 09/26/16 01:00 10/26/16 00:59 Levalbuterol (Xopenex 1.25MG/ 0.5ML Neb) 1.25 mg Q4H PRN INH 09/26/16 01:00 10/26/16 00:59 Digoxin (Lanoxin Tab) 0.125 mg DAILY@16 PO 09/26/16 16:00 10/26/16 15:59 Future Hold 09/30/16 16:02 0.125 MG Heparin Sodium (Porcine) (Heparin Sq 5000 Unit/0.5ml) 5,000 unit Q8 SQ 09/28/16 14:00 10/28/16 13:59 10/01/16 14:30 5,000 UNIT Prednisone (PredniSONE TAB) 60 mg DAILY@0800 PO 09/30/16 08:00 10/30/16 07:59 10/01/16 08:15 60 MG Diltiazem HCl (Cardizem Tab) 60 mg TID PO 09/30/16 21:00 10/30/16 20:59 Future Hold 10/01/16 08:15 60 MG Metoprolol Tartrate (Lopressor Tab) 12.5 mg BID PO 10/01/16 09:00 10/31/16 08:59 Future Hold 10/01/16 08:15 12.5 MG I & O: 24-Hour Column 10/01/16 08:00 Intake Total 480 ml Output Total 400 ml Balance 80 ml Vital Signs: Date Time Temp Pulse Resp B/P Pulse Ox O2 Delivery O2 Flow Rate FiO2 10/01/16 15:38 36.5 112 20 125/66 93 Nasal Cannula 2.0 Humidified Oxygen 10/01/16 14:17 95 18 98 Nasal Cannula 3.0 10/01/16 12:00 Nasal Cannula Humidified Oxygen 10/01/16 11:30 36.2 78 18 111/66 97 Nasal Cannula 3.0 10/01/16 08:37 138 137/72 10/01/16 08:20 36.5 54 18 141/73 99 Nasal Cannula 3.0 10/01/16 08:00 Nasal Cannula Humidified Oxygen 10/01/16 07:05 84 18 96 Nasal Cannula 3.0 10/01/16 04:00 96 Nasal Cannula 3.0 30 Humidified Oxygen 10/01/16 03:45 36.4 125 18 110/64 95 Nasal Cannula 3.0 10/01/16 03:44 135 110/64 10/01/16 01:57 77 18 95 Nasal Cannula 3.0 10/01/16 00:00 96 Nasal Cannula 3.0 30 Humidified Oxygen 09/30/16 23:25 36.5 72 16 100/62 98 Nasal Cannula 3.0 Humidified Oxygen 09/30/16 19:25 36.7 95 16 98/57 96 Room Air 09/30/16 19:15 78 18 96 Nasal Cannula 3.0 09/30/16 18:50 99 Nasal Cannula 3.0 Humidified Oxygen 09/30/16 16:14 99 Nasal Cannula 3.0 Humidified Oxygen 09/30/16 16:09 36.5 99 16 123/68 99 Nasal Cannula 3.0 Humidified Oxygen 09/30/16 16:02 100 09/30/16 15:58 36.9 94 22 120/73 98 Nasal Cannula 3.0 Laboratory Results: Last 24 Hours Test 10/01/16 06:30 White Blood Count 7.21 K/uL Red Blood Count 3.31 M/uL Hemoglobin 8.9 g/dL Hematocrit 30.1 % Mean Corpuscular Volume 90.9 fL Mean Corpuscular Hemoglobin 26.9 pg Mean Corpuscular Hemoglobin Concent 29.6 g/dl RDW Standard Deviation 54.9 fL RDW Coefficient of Variation 16.6 % Platelet Count 52 K/uL Platelet Estimate DECREASED Sodium Level 142 mmol/L Potassium Level 4.7 mmol/L Chloride Level 95 mmol/L Carbon Dioxide Level 43 mmol/L Anion Gap 4.0 mmol/L Blood Urea Nitrogen 19 mg/dl Creatinine 0.49 mg/dl Est Creatinine Clear Calc Drug Dose 65.3 ml/min Estimated GFR () 101.5 Estimated GFR (Non- 87.6 BUN/Creatinine Ratio 39.6 Random Glucose 81 mg/dl Calcium Level 8.2 mg/dl Magnesium Level 2.0 mg/dl
--- NOTE | 2016-10-01 16:40 | Progress Note ---
Medicine Progress Note Date & Time of Visit: Oct 01, 2016 at 16:32. Subjective Patient seen and examined. Discussed with patient her understanding of her lung and heart conditions. Patient expressed that they are "fatal". She expressed understanding of the end stage nature of her condition. She states that each night she prays that if she dies, she is thankful for the days that she has had. She notes that she has not shared these sentiments with her family. Patient understands the role of hospice. She is open to discussing hospice care. She has also not discussed this with her family. Patient asks to end the conversation due to SOB. Objective Last 8 Hrs Date Time Temp Pulse Resp B/P Pulse Ox O2 Delivery O2 Flow Rate FiO2 10/01/16 15:38 36.5 112 20 125/66 93 Nasal Cannula 2.0 Humidified Oxygen 10/01/16 14:17 95 18 98 Nasal Cannula 3.0 10/01/16 12:00 Nasal Cannula Humidified Oxygen 10/01/16 11:30 36.2 78 18 111/66 97 Nasal Cannula 3.0 10/01/16 08:37 138 137/72 Physical Exam: General-awake; alert; NAD Eyes-EOMI; no scleral icterus Neck-no stridor; trachea midline Lungs-faint bibasilar crackles Heart-tachycardic; irregularly irregular Abdomen-soft; NTND; NBS Extremities-no c/c/e; no deformity Neuro-no gross focal deficit Laboratory Results: Last 24 Hours Test 10/01/16 06:30 White Blood Count 7.21 K/uL Red Blood Count 3.31 M/uL Hemoglobin 8.9 g/dL Hematocrit 30.1 % Mean Corpuscular Volume 90.9 fL Mean Corpuscular Hemoglobin 26.9 pg Mean Corpuscular Hemoglobin Concent 29.6 g/dl RDW Standard Deviation 54.9 fL RDW Coefficient of Variation 16.6 % Platelet Count 52 K/uL Platelet Estimate DECREASED Sodium Level 142 mmol/L Potassium Level 4.7 mmol/L Chloride Level 95 mmol/L Carbon Dioxide Level 43 mmol/L Anion Gap 4.0 mmol/L Blood Urea Nitrogen 19 mg/dl Creatinine 0.49 mg/dl Est Creatinine Clear Calc Drug Dose 65.3 ml/min Estimated GFR () 101.5 Estimated GFR (Non- 87.6 BUN/Creatinine Ratio 39.6 Random Glucose 81 mg/dl Calcium Level 8.2 mg/dl Magnesium Level 2.0 mg/dl Assessment & Plan NEW ONSET ATRIAL FIBRILLATION WITH RVR -Cardiology consulted - digoxin, metoprolol and diltiazem on hold -discontinued IV metoprolol PRN -continue aspirin -anticoagulation not recommended per Cardiology as risks outweigh benefits NONISCHEMIC CARDIOMYOPATHY -Cardiology consulted -continue aspirin -metoprolol held CHRONIC RESPIRATORY FAILURE/ SEVERE COPD -maintaining saturation on chronic 2 liters NC -Pulmonary consulted -nocturnal pulse completed -changed methylprednisolone to prednisone with taper -continue nebulizers -patient does not qualify for home BiPAP at this time THROMBOCYTOPENIA -unclear etiology -platelets low on admission, downtrended and appear to have stabilized -no obvious offending medications -do not believe this is related to heparin, but if continue to downtrend will hold heparin and check 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 Consultants: Cardiology Pulmonary Procedures: CT head 1. No acute intracranial findings. 2. Study mildly compromised by motion artifact. 3. Moderate small vessel disease. TTE * Atrial fibrillation with rapid ventricular rate was present at the time of the echocardiogram. * The left ventricular ejection fraction is grossly normal. * The right ventricle is moderately dilated. * The right ventricular systolic function is moderately reduced. * Severe biatrial enlargement is present. * There is moderate tricuspid regurgitation. * There is mild mitral regurgitation. * Moderate to severe pulmonary hypertension is present. * The PA systolic pressure is calculated to be 63 mm Hg. Current Inpatient Medications: Current Inpatient Medications Medications (Trade) Dose Ordered Sig/Jesús Route Start Time Stop Time Status Last Admin Dose Admin Acetaminophen (Tylenol Tab) 650 mg Q4H PRN PO 09/24/16 16:15 10/24/16 16:14 Ondansetron HCl (Zofran Inj) 4 mg Q6H PRN IV 09/24/16 16:15 10/24/16 16:14 Aspirin (Ecotrin Tab) 81 mg DAILY PO 09/25/16 09:00 10/25/16 08:59 Future hold 10/01/16 08:14 81 MG Multivitamins (Multivitamin Tab) 1 tab DAILY PO 09/25/16 09:00 10/25/16 08:59 10/01/16 08:14 1 TAB Ipratropium [place] (Atrovent 0.02% 0.5MG/2.5ML Neb) 0.5 mg Q6R INH 09/26/16 03:00 10/26/16 02:59 10/01/16 14:17 0.5 MG Levalbuterol (Xopenex 1.25MG/ 0.5ML Neb) 1.25 mg Q6R INH 09/26/16 03:00 10/26/16 02:59 10/01/16 14:17 1.25 MG Ipratropium [place] (Atrovent 0.02% 0.5MG/2.5ML Neb) 0.5 mg Q4H PRN INH 09/26/16 01:00 10/26/16 00:59 Levalbuterol (Xopenex 1.25MG/ 0.5ML Neb) 1.25 mg Q4H PRN INH 09/26/16 01:00 10/26/16 00:59 Digoxin (Lanoxin Tab) 0.125 mg DAILY@16 PO 09/26/16 16:00 10/26/16 15:59 Future Hold 09/30/16 16:02 0.125 MG Heparin Sodium (Porcine) (Heparin Sq 5000 Unit/0.5ml) 5,000 unit Q8 SQ 09/28/16 14:00 10/28/16 13:59 10/01/16 14:30 5,000 UNIT Prednisone (PredniSONE TAB) 60 mg DAILY@0800 PO 09/30/16 08:00 10/30/16 07:59 10/01/16 08:15 60 MG Diltiazem HCl (Cardizem Tab) 60 mg TID PO 09/30/16 21:00 10/30/16 20:59 Future Hold 10/01/16 08:15 60 MG Metoprolol Tartrate (Lopressor Tab) 12.5 mg BID PO 10/01/16 09:00 10/31/16 08:59 Future Hold 10/01/16 08:15 12.5 MG
[2016-10-02] VITALS (13 sets, daily range): BP systolic 98–160; BP diastolic 58–85; PULSE 79–130; TEMP 36.4–36.9; O2SAT 88–100
[2016-10-02] MEDS: IPRATROPIUM BROMIDE NEB SOLN 0.02% 2.5 ML VIAL INH SCH ×4 (02:08→20:21)
[2016-10-02] MEDS: LEVALBUTEROL 1.25MG/0.5ML NEB INH SCH ×4 (02:08→20:21)
[2016-10-02] MEDS ORDERED: NURSING VERBAL MED ORDER ONE (02:15)
[2016-10-02] MEDS ORDERED: ALUMINUM/MAGNESIUM SUSP 30 ML UDC ONE (02:15)
[2016-10-02] MEDS ORDERED: ALUMINUM/MAGNESIUM SUSP 30 ML UDC PO STA (02:18)
[2016-10-02] MEDS: HEPARIN SOD 5000 UNIT/0.5 ML CARP SQ SCH ×3 (05:51→20:56)
[2016-10-02 07:43] LABS: MEAN CORPUSCULAR HGB CONC 29.6 g/dl (32-36)
[2016-10-02 08:03] LABS: HEMATOCRIT 31.1 % (37-47); MEAN CELL VOLUME 90.9 fL (80-100); MEAN CORPUSCULAR HEMOGLOBIN 26.9 pg (25-34); RED BLOOD COUNT 3.42 M/uL (4.2-5.4); WHITE BLOOD COUNT 6.88 K/uL (4.8-10.8)
--- NOTE | 2016-10-02 08:11 | Cardiology Follow-Up ---
Subjective General Date of Service: Oct 02, 2016. Chief Complaint: follow up atrial fibrilalation Pt evaluation today including: conversation w/ patient, physical exam, chart review, lab review, review of studies, review of inpatient medication list History of Present Illness The patient is a 86 year old female seen in follow-up. Heart rate elevated this am. Metoprolol discontinued secondary to transient asymptomatic bradycardia yesterday. Platelets count pending this AM. Denies chest discomfort, palpitations, lightheadedness, dizziness. Nonproductive cough unchanged. No active wheeze. Denies orthopnea or paroxysmal nocturnal dyspnea. +SOB at rest unchanged Allergies Coded Allergies: Sulfa Antibiotics (Verified Allergy, Intermediate, ?, 09/24/16) Penicillins (Unverified Allergy, Mild, 09/24/16) Social History Smoking Status: Current Every Day Smoker Hx Tobacco Use In Past Year?: Yes Hx Alcohol Use - Type And Amou: No Hx Substance Use - Type And Am: No Problem List Medical Problems: (1) Atrial fibrillation with RVR Status: Acute (2) CHF (congestive heart failure) Status: Acute (3) Generalized weakness Status: Acute Review of Systems Respiratory: + cough, + dyspnea at rest, + dyspnea on exertion, + shortness of breath, No hemoptysis, No sputum, No wheezing Cardiac: No PND, No chest pain, No claudication, No edema, No orthopnea, No palpitations Physical Exam Vital Signs Last Vital Signs Documentation Date Time Temp Pulse Resp B/P Pulse Ox O2 Delivery O2 Flow Rate FiO2 10/02/16 07:27 36.6 127 18 122/68 98 Nasal Cannula 3.0 10/01/16 23:25 30 Physical Exam Constitutional: General Apperance: cachectic Level of Distress: NAD, chronically ill Head: normocephalic Neck: supple Lungs: Auscultation: no wheezing, pertinent finding (decreased BS at bases ) Cardiovascular: Heart Auscultation: II/ PATITO, irregular rate rhythm Peripheral Pulses: Radial Pulse: normal on the left, normal on the right Abdomen: Bowel Sounds: normal Inspection & Palpation: soft, non-distended Musculoskeletal: normal Extremities: no cyanosis, no edema, no clubbing, no ulcers Neurologic: Gait & Station: pertinent finding (No focal motor deficit) Cranial Nerves: grossly intact Assessment and Plan Assessment and Plan IMP: 1. Paroxysmal atrial fibrillation with rapid ventricular response -transient bradycardia yesterday with triple therapy - metoprolol, cardizem , digoxin 2. Preserved LV systolic function 3. Cor pulmonale / severe COPD with hypercapnic respiratory failure 4. Thrombocytopenia - Platelets count pending today 5. Normocytic Anemia - stable Plan: Metoprolol discontinued. Continue cardizem and digoxin. Repeat CBC in AM. Hold anticoagulation at this time as risk (advanced age, anemia, thrombocytopenia, cachexia, fall risk) currently outweighs benefit. COPD management as per pulmonary medicine. Laboratory Results Last 24 Hours Test 10/02/16 06:55 White Blood Count 6.88 K/uL Red Blood Count 3.42 M/uL Hemoglobin 9.2 g/dL Hematocrit 31.1 % Mean Corpuscular Volume 90.9 fL Mean Corpuscular Hemoglobin 26.9 pg Mean Corpuscular Hemoglobin Concent 29.6 g/dl RDW Standard Deviation 54.5 fL RDW Coefficient of Variation 16.6 %
[2016-10-02 08:19] LABS: PLATELET COUNT 57 K/uL (130-400); PLT ESTIMATE DECREASED
[2016-10-02 08:20] LABS: CALCIUM 8.5 mg/dl (8.5-10.1); CREATININE 0.37 mg/dl (0.60-1.20); MAGNESIUM 1.9 mg/dl (1.8-2.4); POTASSIUM 4.1 mmol/L (3.5-5.1)
[2016-10-02] MEDS: DILTIAZEM HCL 60 MG TAB PO SCH ×3 (09:52→20:21)
[2016-10-02] MEDS: MULTIVITAMIN TAB PO SCH (09:52)
[2016-10-02] MEDS: ASPIRIN 81 MG ECTAB PO SCH (09:52)
[2016-10-02] MEDS: DIGOXIN 0.125 MG TAB PO SCH (16:11)
--- NOTE | 2016-10-02 21:20 | Progress Note ---
Medicine Progress Note Date & Time of Visit: Oct 02, 2016 at 21:18. Subjective Patient seen and examined. Family meeting held with sons Rashard and Valeria. Patient expressed understanding of end stage lung condition. Patient in agreement with home hospice. Objective Last 8 Hrs Date Time Temp Pulse Resp B/P Pulse Ox O2 Delivery O2 Flow Rate FiO2 10/02/16 20:35 86 20 99 Nasal Cannula 4.0 10/02/16 19:30 100 Nasal Cannula 3.0 10/02/16 16:11 110 10/02/16 16:00 Nasal Cannula 3.0 10/02/16 15:22 36.4 103 18 112/85 100 Nasal Cannula 4.0 10/02/16 14:23 87 20 95 Nasal Cannula 3.0 Physical Exam: General-awake; alert; NAD Eyes-EOMI; no scleral icterus Neck-no stridor; trachea midline Lungs-faint bibasilar crackles; conversational dyspnea Heart-tachycardic; irregularly irregular Abdomen-soft; NTND; NBS Extremities-no c/c/e; no deformity Neuro-no gross focal deficit Laboratory Results: Last 24 Hours Test 10/02/16 06:55 White Blood Count 6.88 K/uL Red Blood Count 3.42 M/uL Hemoglobin 9.2 g/dL Hematocrit 31.1 % Mean Corpuscular Volume 90.9 fL Mean Corpuscular Hemoglobin 26.9 pg Mean Corpuscular Hemoglobin Concent 29.6 g/dl RDW Standard Deviation 54.5 fL RDW Coefficient of Variation 16.6 % Platelet Count 57 K/uL Platelet Estimate DECREASED Sodium Level 138 mmol/L Potassium Level 4.1 mmol/L Chloride Level 93 mmol/L Carbon Dioxide Level 42 mmol/L Anion Gap 3.0 mmol/L Blood Urea Nitrogen 19 mg/dl Creatinine 0.37 mg/dl Est Creatinine Clear Calc Drug Dose 87.9 ml/min Estimated GFR () 111.4 Estimated GFR (Non- 96.1 BUN/Creatinine Ratio 50.0 Random Glucose 88 mg/dl Calcium Level 8.5 mg/dl Magnesium Level 1.9 mg/dl Assessment & Plan NEW ONSET ATRIAL FIBRILLATION WITH RVR -Cardiology consulted -continue digoxin and diltiazem -metoprolol discontinued -discontinued IV metoprolol PRN -continue aspirin -anticoagulation not recommended per Cardiology as risks outweigh benefits NONISCHEMIC CARDIOMYOPATHY -Cardiology consulted -continue aspirin -metoprolol discontinued CHRONIC RESPIRATORY FAILURE/ SEVERE COPD -maintaining saturation on chronic 2 liters NC -Pulmonary consulted -nocturnal pulse completed -changed methylprednisolone to prednisone with taper -continue nebulizers -patient does not qualify for home BiPAP at this time THROMBOCYTOPENIA -unclear etiology -platelets low on admission, downtrended and appear to have stabilized -no obvious offending medications -do not believe this is related to heparin, but if continue to downtrend will hold heparin and check HIT ANEMIA -previous Hgb appears to be around 11 (in 2013 and 2014) -Hgb stable ~9-10 -no active bleeding ENCEPHALOPATHY -likely related to underlying respiratory issues -resolved CAD -prior cath 2007 showed diffuse mild disease and 50% RCA lesion -continue aspirin -metoprolol discontinued TOBACCO ABUSE -counseled on smoking cessation DVT PROPHYLAXIS -heparin sq CODE STATUS DNR Anticipate discharge home with hospice. Discharge planning: home with Hospice Consultants: Cardiology Pulmonary Procedures: CT head 1. No acute intracranial findings. 2. Study mildly compromised by motion artifact. 3. Moderate small vessel disease. TTE * Atrial fibrillation with rapid ventricular rate was present at the time of the echocardiogram. * The left ventricular ejection fraction is grossly normal. * The right ventricle is moderately dilated. * The right ventricular systolic function is moderately reduced. * Severe biatrial enlargement is present. * There is moderate tricuspid regurgitation. * There is mild mitral regurgitation. * Moderate to severe pulmonary hypertension is present. * The PA systolic pressure is calculated to be 63 mm Hg. Current Inpatient Medications: Current Inpatient Medications Medications (Trade) Dose Ordered Sig/Jesús Route Start Time Stop Time Status Last Admin Dose Admin Acetaminophen (Tylenol Tab) 650 mg Q4H PRN PO 09/24/16 16:15 10/24/16 16:14 Ondansetron HCl (Zofran Inj) 4 mg Q6H PRN IV 09/24/16 16:15 10/24/16 16:14 Aspirin (Ecotrin Tab) 81 mg DAILY PO 09/25/16 09:00 10/25/16 08:59 Future hold 10/02/16 09:52 81 MG Multivitamins (Multivitamin Tab) 1 tab DAILY PO 09/25/16 09:00 10/25/16 08:59 10/02/16 09:52 1 TAB Ipratropium [place] (Atrovent 0.02% 0.5MG/2.5ML Neb) 0.5 mg Q6R INH 09/26/16 03:00 10/26/16 02:59 10/02/16 20:21 0.5 MG Levalbuterol (Xopenex 1.25MG/ 0.5ML Neb) 1.25 mg Q6R INH 09/26/16 03:00 10/26/16 02:59 10/02/16 20:21 1.25 MG Ipratropium [place] (Atrovent 0.02% 0.5MG/2.5ML Neb) 0.5 mg Q4H PRN INH 09/26/16 01:00 10/26/16 00:59 Levalbuterol (Xopenex 1.25MG/ 0.5ML Neb) 1.25 mg Q4H PRN INH 09/26/16 01:00 10/26/16 00:59 Heparin Sodium (Porcine) (Heparin Sq 5000 Unit/0.5ml) 5,000 unit Q8 SQ 09/28/16 14:00 10/28/16 13:59 10/02/16 20:56 5,000 UNIT Prednisone (PredniSONE TAB) 60 mg DAILY@0800 PO 09/30/16 08:00 10/30/16 07:59 10/02/16 09:51 60 MG Diltiazem HCl (Cardizem Tab) 60 mg TID PO 09/30/16 21:00 10/30/16 20:59 Future hold 10/02/16 20:21 60 MG Metoprolol Tartrate (Lopressor Tab) 12.5 mg BID PO 10/01/16 09:00 10/31/16 08:59 Future Hold 10/01/16 08:15 12.5 MG Digoxin (Lanoxin Tab) 0.125 mg DAILY@16 PO 10/02/16 16:00 11/01/16 15:59 10/02/16 16:11 0.125 MG
[2016-10-03] MEDS ORDERED: LEVALBUTEROL 1.25MG/0.5ML NEB INH SCH
[2016-10-03] MEDS ORDERED: IPRATROPIUM BROMIDE NEB SOLN 0.02% 2.5 ML VIAL INH SCH
[2016-10-03] MEDS ORDERED: DILTIAZEM HCL 60 MG TAB PO SCH
[2016-10-03 00:16] VITALS: O2SAT 100
[2016-10-03 02:04] VITALS: PULSE 103; O2SAT 98
[2016-10-03] MEDS: LEVALBUTEROL 1.25MG/0.5ML NEB INH SCH ×2 (02:04→08:00)
[2016-10-03] MEDS: IPRATROPIUM BROMIDE NEB SOLN 0.02% 2.5 ML VIAL INH SCH ×2 (02:04→08:00)
[2016-10-03] MEDS: HEPARIN SOD 5000 UNIT/0.5 ML CARP SQ SCH (06:16)
[2016-10-03 07:30] VITALS: BP 131/86; PULSE 84; TEMP 36.6; O2SAT 98
[2016-10-03] MEDS: ASPIRIN 81 MG ECTAB PO SCH (07:49)
[2016-10-03] MEDS: DILTIAZEM HCL 60 MG TAB PO SCH ×2 (07:49→12:54)
[2016-10-03] MEDS: MULTIVITAMIN TAB PO SCH (07:50)
[2016-10-03 08:00] VITALS: PULSE 120; O2SAT 90
[2016-10-03 08:09] LABS: MEAN CORPUSCULAR HGB CONC 30.5 g/dl (32-36)
[2016-10-03 08:20] LABS: HEMATOCRIT 30.5 % (37-47); MEAN CELL VOLUME 90.5 fL (80-100); MEAN CORPUSCULAR HEMOGLOBIN 27.6 pg (25-34); RED BLOOD COUNT 3.37 M/uL (4.2-5.4); WHITE BLOOD COUNT 9.55 K/uL (4.8-10.8)
[2016-10-03 08:30] LABS: PLATELET COUNT 54 K/uL (130-400); PLT ESTIMATE DECREASED
[2016-10-03 08:35] LABS: BUN/CREATININE RATIO 30.2 (10-20); CALCIUM 8.1 mg/dl (8.5-10.1); CREATININE 0.41 mg/dl (0.60-1.20); MAGNESIUM 1.9 mg/dl (1.8-2.4); POTASSIUM 3.5 mmol/L (3.5-5.1)
[2016-10-03] MEDS ORDERED: ATRINS INH (09:52)
[2016-10-03] MEDS ORDERED: PRED10TA PO (09:52)
[2016-10-03] MEDS ORDERED: XPNINS1255 INH (09:52)
[2016-10-03] MEDS ORDERED: CRD60 PO (09:52)
[2016-10-03] MEDS ORDERED: LNX125 PO (09:52)
--- NOTE | 2016-10-03 09:57 | Discharge Instructions ---
Discharge Instructions Admission Reason for Admission: Atrial Fibrillation With Rvr Discharge Discharge Diagnosis / Problem: Chronic obstructive pulmonary disease. Atrial fibrillation. Discharge Goals Goal(s): Decrease discomfort Activity Recommendations Activity Limitations: resume your previous activity . Instructions / Follow-Up Instructions / Follow-Up Please complete prednisone taper as follows: start 10/04/16. Take 5 tablets daily for 3 days. Then 4 tablets daily for 3 days. Then 3 tablets daily for 3 days. Then 2 tablets daily for 3 days. Then 1 tablet daily for 3 days. Current Hospital Diet Patient's current hospital diet: AHA Diet (Heart Healthy) Discharge Diet Recommended Diet: Regular Diet Pending Studies Studies pending at discharge: no Medical Emergencies . Who to Call and When: Medical Emergencies: If at any time you feel your situation is an emergency, please call 911 immediately. . Non-Emergent Contact Non-Emergency issues call your: Specialist (Home hospice agency) . . "Provider Documentation" section prepared by Emily Lara. VTE Core Measure Inpt VTE Proph given/why not?: Unfractionated heparin SQ
[2016-10-03 10:52] VITALS: BP 131/86; PULSE 120; TEMP 36.6; O2SAT 90
[2016-10-03] MEDS: DIGOXIN 0.125 MG TAB PO SCH (12:53)
--- NOTE | 2016-10-03 16:47 | Discharge Summary ---
Discharge Summary Date of Service Oct 03, 2016. Discharge Summary Admission Date: Sep 24, 2016 at 16:01 Discharge Date: Oct 03, 2016 Discharge Disposition: Home with services (Home hospice) Principal Diagnosis: Atrial fibrillation Procedures: CT head 1. No acute intracranial findings. 2. Study mildly compromised by motion artifact. 3. Moderate small vessel disease. TTE * Atrial fibrillation with rapid ventricular rate was present at the time of the echocardiogram. * The left ventricular ejection fraction is grossly normal. * The right ventricle is moderately dilated. * The right ventricular systolic function is moderately reduced. * Severe biatrial enlargement is present. * There is moderate tricuspid regurgitation. * There is mild mitral regurgitation. * Moderate to severe pulmonary hypertension is present. * The PA systolic pressure is calculated to be 63 mm Hg. Consultations: Cardiology Pulmonary Medication Reconciliation New Medications: Digoxin (Digoxin) 0.125 Mg Tab 0.125 MG PO DAILY@16 for 30 Days, #30 TAB Diltiazem HCl (Diltiazem HCl) 60 Mg Tab 60 MG PO TID for 30 Days, #90 TAB Ipratropium [place] (Ipratropium [place]) 0.5 Mg/2.5 Ml Nebu 0.5 MG INH Q6R for 30 Days, #120 VIAL Levalbuterol (Levalbuterol) 1.25 Mg/0.5 Ml Nebu 1.25 MG INH Q6R for 30 Days, #120 VIAL Changed Medications: Prednisone Tab (Prednisone) 10 Mg Tab 10 MG PO UD for 15 Days, #45 TAB (Changed from: 5 TABS X 2 DAYS, 4 TABS X 2 DAYS , 3 TABS X 1 DAY, 2 TABS X 1 DAY, 1 TAB X 1 DAY) 5 TABS X 3 DAYS, 4 TABS X 3 DAYS, 3 TABS X 3 DAYS, 2 TABS X 3 DAYS, 1 TAB X 3 DAYS Continued Medications: Aspirin (Aspirin Ec) 81 Mg Tab 81 MG PO DAILY Multiple Vitamin (Multivitamin) 1 Tab Tab 1 TAB PO DAILY, TAB Oxygen (Oxygen) Gas 5 LITERS NA CONTINOUS Discontinued Medications: Ipratropium [place] (Atrovent Hfa) 200 Puffs/3400 Mcg Aers 2 PUFFS INH QID PRN for SOB or cough for 30 Days Levalbuterol Tartrate (Levalbuterol Tartrate Hfa) 45 Mcg/Act Aer 2 PUFFS INH Q4H PRN for SOB/Wheezing Metoprolol Tartrate (Lopressor) 25 Mg Tab 12.5 MG PO BID for 30 Days, TAB Admission Information HPI (per Admitting provider): This is an 86 year old female with PMH of severe COPD on chronic oxygen 5 liters continuous, chronic smoker, HTN, CAD, nonischemic cardiomyopathy with LV EF improved to 60-65% on echo 01/2015, RV dysfunction, AAA, and other problems listed below who presents to the ED with worsening SOB and increasing LE edema. Pt follows with Dr. Crespo for primary care. She has seen [facility] cardiology in the past (last visit 2011). Son at bedside states SOB was worse for a few weeks with increased "gurgling" and then markedly worsened yesterday and today. SOB is worse with ambulation but occurs occasionally at rest. She has cough with clear sputum which is typical for her. She has associated increase in BLLE edema from baseline. She does not track her weight. When she became ill patient' s PCP's office was called and she was given a course of Azithromycin finished 5 days ago and a prednisone taper finished approx 1 week ago. She restarted on prednisone yesterday at which time she took 50 mg. She was having some left sided flank pain in past few days which resolved. Pt denies fever, chills, dizziness, vision change, numbness, tingling, rhinorrhea, orthopnea, chest pain , palpitations, abdominal pain, N/V/D, dysuria, frequency, GI bleeding or other abnormal bleeding. She ambulates about 30 feet around the home. No recent falls. Denies history of DM or TIA/ CVA. Physical Exam (per Admitting): General Appearance: + thin, + pertinent finding (frail elderly female, son at bedside) Head: normocephalic, atraumatic Eyes: normal inspection, PERRL, EOMI ENT: hearing grossly normal, pharynx normal Neck: supple, trachea midline, + JVD Respiratory/Chest: + decreased breath sounds, + accessory muscle use (mild- occurred after repositioning), + pertinent finding (no wheezes, crackles, or rhonchi. saturating well on 5L at rest, sat dropped briefly to 80s with repositioning. ) Cardiovascular: no murmur, + tachycardia (rate 130s), + irregularly irregular, + pertinent finding (radial pulses 2+. unable to appreciate DP pulses ) Abdomen/GI: normal bowel sounds, non tender, soft Back: no CVA tenderness Extremities/Musculoskelatal: normal capillary refill, + pertinent finding ( BLLE pretibial and pedal edema 3+) Neurologic/Psych: alert, normal mood/affect, oriented x 3, + pertinent finding (grossly nonfocal. moves all extremities strength 5/5) Skin: normal color, warm/dry Hospital Course Patient was admitted with atrial fibrillation. Cardiology was consulted. Patient was on varying regimens of meagan blocking agents and was ultimately continued on digoxin and diltiazem. Anticoagulation was not recommended as the risks outweighed the benefits per Cardiology recommendations. Patient was continued on aspirin. Pulmonary was consulted for patient's severe COPD. Patient was continued on supplemental oxygen. A nocturnal pulse oxymetry and ABG were done to determine if patient qualified for home BiPAP, which she did not. Patient was started on methylprednisolone and was transitioned to prednisone, with a planned taper upon discharge. Patient was continued on nebulizer treatments. Patient did have encephalopathy on admission that was felt to be likely due to underlying severe COPD and CO2 retention. Patient was noted to have thrombocytopenia of undetermined etiology. No obvious offending medications were identified. Platelet count remained stable ~50-60K. Patient also did have anemia, with hemoglobin stable ~8. Family discussions were held regarding patient's end stage lung disease and overall poor prognosis. Patient expressed understanding of lung and heart conditions, noting that they were "fatal". Patient and family were agreeable to home hospice and this was arranged for patient with the assistance of case management. Patient deemed stable for discharge with home hospice. PE on discharge: General- awake; alert; NAD Eyes- EOMI; no scleral icterus Neck- no stridor; trachea midline Lungs- no wheezes/crackles; diminished breath sounds at the bases; pursed lip breathing Heart- irregularly irregular Abdomen- soft; NTND; nBS Back- no gross abnormalities Extremities- no c/c/e; no deformity Neuro- no focal deficits Skin- no appreciable rash . Total time spent on discharge = This includes examination of the patient, discharge planning, medication reconciliation, and communication with other providers. Discharge Instructions Discharge Instructions Admission Reason for Admission: Atrial Fibrillation With Rvr Discharge Discharge Diagnosis / Problem: Chronic obstructive pulmonary disease. Atrial fibrillation. Discharge Goals Goal(s): Decrease discomfort Activity Recommendations Activity Limitations: resume your previous activity . Instructions / Follow-Up Instructions / Follow-Up Please complete prednisone taper as follows: start 10/04/16. Take 5 tablets daily for 3 days. Then 4 tablets daily for 3 days. Then 3 tablets daily for 3 days. Then 2 tablets daily for 3 days. Then 1 tablet daily for 3 days. Current Hospital Diet Patient's current hospital diet: AHA Diet (Heart Healthy) Discharge Diet Recommended Diet: Regular Diet Pending Studies Studies pending at discharge: no Medical Emergencies . Who to Call and When: Medical Emergencies: If at any time you feel your situation is an emergency, please call 911 immediately. . Non-Emergent Contact Non-Emergency issues call your: Specialist (Home hospice agency) . . "Provider Documentation" section prepared by Emily Lara. VTE Core Measure Inpt VTE Proph given/why not?: Unfractionated heparin SQ Additional Copies To Eron Crespo M.D.
== END 2016-10-03 13:30 | disposition hospice, home (50) | DRG 308 ==
LOC: ENRESERVTM → ENRESERVDT → C.EDB 13:24 → C.2T 16:01 → C.MS4W 10-02 10:46
PROVIDERS: ADMIT Hospitalist; ATTEND Internal Medicine
DX: I48.0 Paroxysmal atrial fibrillation (principal); J96.21 Acute and chronic respiratory failure with hypoxia; G93.40 Encephalopathy, unspecified; J44.1 Chronic obstructive pulmonary disease with (acute) exacerbation; E87.2 Acidosis; I50.30 Unspecified diastolic (congestive) heart failure; I42.9 Cardiomyopathy, unspecified; I25.10 Atherosclerotic heart disease of native coronary artery without angina pectoris; Z51.5 Encounter for palliative care; F17.210 Nicotine dependence, cigarettes, uncomplicated; Z88.0 Allergy status to penicillin; Z88.2 Allergy status to sulfonamides; I36.1 Nonrheumatic tricuspid (valve) insufficiency; I27.2 Other secondary pulmonary hypertension; D69.6 Thrombocytopenia, unspecified; Z66 Do not resuscitate; I27.81 Cor pulmonale (chronic)